=== PATIENT | male | born 1970 | race African-American/Black ===

== ENCOUNTER 2017-02-05 18:36 | Emergency (ER) | payer OTHER ==
[2017-02-05 19:18] VITALS: BP 104/81; PULSE 78; TEMP 98; BMI 33.2
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
== END 2017-02-05 20:32 | disposition home or self-care (01) ==
LOC: FER 18:36
DX: S16.1XXA Strain of muscle, fascia and tendon at neck level, initial encounter (principal); S13.4XXA Sprain of ligaments of cervical spine, initial encounter; V44.5XXA Car driver injured in collision with heavy transport vehicle or bus in traffic accident, initial encounter; Y93.89 Activity, other specified; Y92.410 Unspecified street and highway as the place of occurrence of the external cause; I10 Essential (primary) hypertension; I51.9 Heart disease, unspecified; I50.9 Heart failure, unspecified
CPT/HCPCS: 72050-TC; 99281-25

== ENCOUNTER 2021-01-25 20:20 | Emergency (ER) | payer OTHER ==
[2021-01-25 20:50] VITALS: BMI 25.9
[2021-01-25 22:50] LABS: INR 0.97 (0.83-1.09); PROTHROMBIN TIME (PATIENT) 11.7 SEC (9.7-13.0)
[2021-01-25 22:52] LABS: ACTIVATED PTT 24.4 SECONDS (25.2-36.5); CHLORIDE 100 mmol/L (98-107); SODIUM 136 mmol/L (136-145)
[2021-01-25 22:54] LABS: ANION GAP 11 MMOL/L (8-16); BLOOD UREA NITROGEN 52.8 mg/dL (7-18); CALCIUM 8.9 mg/dL (8.5-10.1); CO2 25 mmol/L (21-32); GLUCOSE,RANDOM 102 mg/dL (74-106)
[2021-01-25 22:55] LABS: ALBUMIN 4.6 g/dl (3.4-5.0)
[2021-01-25 22:58] LABS: SGOT/AST 17 U/L (15-37); SGPT/ALT 26 U/L (13-61)
[2021-01-25 22:59] LABS: BILIRUBIN,TOTAL 0.9 mg/dL (0.2-1)
[2021-01-25 23:00] LABS: ALK PHOS 99 U/L (45-117)
[2021-01-25 23:13] LABS: CREATININE 7.9 mg/dL (0.55-1.3)
[2021-01-25 23:19] LABS: EPI CELLS 2 /uL (0-25.1); HYALINE CASTS 0 /uL (0-3.1); PH,URINE 8.5 (5.0-8.0); URINE APPEARANCE CLEAR; URINE BACTERIA 26 /uL (0-1359); URINE BILIRUBIN NEGATIVE (NEGATIVE); URINE COLOR YELLOW; URINE GLUCOSE (UA) NEGATIVE (NEGATIVE); URINE KETONE NEGATIVE (NEGATIVE); URINE LEUK ESTERASE NEGATIVE (NEGATIVE); URINE NITRITE NEGATIVE (NEGATIVE); URINE PROTEIN 3+ (NEGATIVE); URINE RBC 3 /uL (0-23.9); URINE UROBILINOGEN 0.2 mg/dL (0.2-1.0); URINE WBC 3 /uL (0-25.8)
[2021-01-25] MEDS ORDERED: ACETAMINOPHEN 325 MG TABLET (FP) ONE (23:37)
[2021-01-25 23:49] LABS: BASO % 1.4 % (0-2.0); EOS % 2.5 % (0-4.5); HEMATOCRIT 37.4 % (35.4-49); HEMOGLOBIN 12.5 GM/dL (11.7-16.9); LYMPH % 29.7 % (8-40); MCH 31.1 pg (25.7-33.7); MCHC 33.4 g/dl (32.0-35.9); MEAN CELL VOLUME 93.3 fl (80-96); MEAN PLT VOLUME 9.5 fl (7.5-11.1); MONO % 19.4 % (3.8-10.2); PLATELET COUNT 102 10^3/uL (134-434); RBC 4.01 M/mm3 (4.00-5.60); RDW 12.6 % (11.9-15.9); WHITE BLOOD COUNT 2.5 K/mm3 (4.0-10.0)
[2021-01-26 02:48] VITALS: TEMP 98.7
[2021-01-26 03:45] VITALS: BP 147/86; PULSE 87
== END 2021-01-26 03:45 | disposition short-term general hospital (02) ==
LOC: JER 20:20
DX: R55 Syncope and collapse (principal); N18.6 End stage renal disease; Z94.1 Heart transplant status
CPT/HCPCS: 36415; 70450-TC; 71046-TC-FY; 80053; 81003; 82962; 83605; 84443; 84484; 85025; 85610; 85730; 93005; 93010; 99285-25; C9803; U0003; U0005

== ENCOUNTER 2021-06-29 15:15 | Emergency (ER) | payer OTHER ==
[2021-06-29 15:21] VITALS: TEMP 98.5; BMI 27.6
[2021-06-29 20:44] LABS: BASO % 1.3 % (0-2.0); EOS % 4.1 % (0-4.5); HEMATOCRIT 21.4 % (35.4-49); LYMPH % 23.5 % (8-40); MCH 30.6 pg (25.7-33.7); MCHC 32.4 g/dl (32.0-35.9); MEAN CELL VOLUME 94.3 fl (80-96); MONO % 27.4 % (3.8-10.2); NEUT % 43.7 % (42.8-82.8); PLATELET COUNT 203 10^3/uL (134-434); RBC 2.27 M/mm3 (4.00-5.60); RDW 14.1 % (11.9-15.9); WHITE BLOOD COUNT 2.1 K/mm3 (4.0-10.0)
[2021-06-29 21:11] LABS: CHLORIDE 106 mmol/L (98-107); SODIUM 139 mmol/L (136-145)
[2021-06-29 21:14] LABS: ANION GAP 8 MMOL/L (8-16); CALCIUM 9.3 mg/dL (8.5-10.1); CO2 25 mmol/L (21-32); GLUCOSE,RANDOM 94 mg/dL (74-106)
[2021-06-29 21:17] LABS: SGOT/AST 16 U/L (15-37); SGPT/ALT 32 U/L (13-61)
[2021-06-29 21:19] LABS: ALK PHOS 72 U/L (45-117); BILIRUBIN,TOTAL 0.6 mg/dL (0.2-1)
[2021-06-29 21:27] LABS: ANISOCYTOSIS 2+; MACROCYTOSIS 0; OVALOCYTE 1+; PLATELET ESTIMATE NORMAL; TEAR DROP CELLS 1+
[2021-06-29] MEDS ORDERED: DEXTROSE 50%-WATER - 25 GM/50 ML VIAL IVPUSH ONE (21:27)
[2021-06-29] MEDS ORDERED: INSULIN REGULAR HUMAN 100 UNITS/ML *VIAL IVPUSH ONE (21:27)
[2021-06-29] MEDS ORDERED: SODIUM ZIRCONIUM CYCLOSILICATE (LOKELMA) 5 GM PACKET PO ONE (21:31)
[2021-06-29 21:32] LABS: CREATININE 10.5 mg/dL (0.55-1.3)
[2021-06-29 21:35] LABS: INR 1.09 (0.83-1.09); PROTHROMBIN TIME (PATIENT) 12.2 SEC (9.7-13.0)
[2021-06-29 21:37] LABS: ACTIVATED PTT 32.8 SECONDS (25.2-36.5)
[2021-06-29 21:46] LABS: EPI CELLS 1 /uL (0-25.1); HYALINE CASTS 0 /uL (0-3.1); PH,URINE 8.5 (5.0-8.0); URINE APPEARANCE CLEAR; URINE BACTERIA 3 /uL (0-1359); URINE BILIRUBIN NEGATIVE (NEGATIVE); URINE COLOR YELLOW; URINE GLUCOSE (UA) NEGATIVE (NEGATIVE); URINE KETONE NEGATIVE (NEGATIVE); URINE LEUK ESTERASE NEGATIVE (NEGATIVE); URINE NITRITE NEGATIVE (NEGATIVE); URINE PROTEIN 3+ (NEGATIVE); URINE RBC 10 /uL (0-23.9); URINE UROBILINOGEN 0.2 mg/dL (0.2-1.0); URINE WBC 1 /uL (0-25.8)
[2021-06-29] MEDS ORDERED: SODIUM ZIRCONIUM CYCLOSILICATE (LOKELMA) 5 GM PACKET ONE (21:55)
[2021-06-29] MEDS ORDERED: DEXTROSE 50%-WATER 25 GM/50 ML DISP.SYRIN ONE (21:55)
[2021-06-30] MEDS ORDERED: SODIUM ZIRCONIUM CYCLOSILICATE (LOKELMA) 5 GM PACKET PO ONE (01:35)
[2021-06-30] MEDS ORDERED: SODIUM ZIRCONIUM CYCLOSILICATE (LOKELMA) 5 GM PACKET ONE (01:44)
[2021-06-30 02:08] VITALS: BP 152/82; PULSE 81
[2021-06-30] MEDS ORDERED: DEXAMETHASONE SOD PHOSPHATE 10 MG/1 ML VIAL ONE (02:23)
== END 2021-06-30 02:08 | disposition home or self-care (01) ==
LOC: JER 15:15
PROC: 3E033GC Introduction of Other Therapeutic Substance into Peripheral Vein, Percutaneous Approach (ICD-10-PCS; principal; 2021-06-29)
PROC: 3E013VG Introduction of Insulin into Subcutaneous Tissue, Percutaneous Approach (ICD-10-PCS; 2021-06-29)
DX: R10.11 Right upper quadrant pain (principal); D64.9 Anemia, unspecified
CPT/HCPCS: 36415; 74176-TC; 80053; 81003; 84132; 85025; 85610; 85730; 86850; 86900; 86901; 87086; 93005; 93010; 99285-25; C9803-CS; U0003; U0005

== ENCOUNTER 2021-11-07 18:49 | Emergency (ER) | payer OTHER ==
[2021-11-07 19:17] VITALS: BMI 25.0
[2021-11-07] MEDS ORDERED: ACETAMINOPHEN 1000 MG/100 ML BAG IVPB ONE ×2 (19:38→23:56)
[2021-11-07] MEDS ORDERED: METOCLOPRAMIDE HCL INJECTION 10 MG/2 ML VIAL IVPB ONE (19:38)
[2021-11-07] MEDS ORDERED: METOCLOPRAMIDE HCL INJECTION 10 MG/2 ML VIAL ONE (20:32)
[2021-11-07] MEDS ORDERED: ACETAMINOPHEN INJECTION 100 ML IVPB ONE (20:32)
[2021-11-07 20:39] LABS: BASO % 1.1 % (0-2.0); HEMATOCRIT 37.9 % (35.4-49); HEMOGLOBIN 12.3 GM/dL (11.7-16.9); LYMPH % 14.2 % (8-40); MCH 30.5 pg (25.7-33.7); MCHC 32.6 g/dl (32.0-35.9); MEAN CELL VOLUME 93.7 fl (80-96); MEAN PLT VOLUME 9.5 fl (7.5-11.1); MONO % 18.4 % (3.8-10.2); NEUT % 65.3 % (42.8-82.8); PLATELET COUNT 127 10^3/uL (134-434); RBC 4.05 M/mm3 (4.00-5.60); WHITE BLOOD COUNT 2.9 K/mm3 (4.0-10.0)
[2021-11-07 21:05] LABS: CHLORIDE 100 mmol/L (98-107); SODIUM 134 mmol/L (136-145)
[2021-11-07 21:08] LABS: CALCIUM 8.6 mg/dL (8.5-10.1)
[2021-11-07 21:09] LABS: ALBUMIN 4.2 g/dl (3.4-5.0); ANION GAP 10 MMOL/L (8-16); BLOOD UREA NITROGEN 60.5 mg/dL (7-18); CO2 23 mmol/L (21-32); GLUCOSE,RANDOM 142 mg/dL (74-106); MAGNESIUM 2.4 mg/dL (1.8-2.4)
[2021-11-07 21:12] LABS: SGOT/AST 18 U/L (15-37); SGPT/ALT 26 U/L (13-61)
[2021-11-07 21:13] LABS: TOT PROT 6.6 g/dl (6.4-8.2)
[2021-11-07 21:14] LABS: ALK PHOS 54 U/L (45-117)
[2021-11-07 21:42] LABS: CREATININE 8.7 mg/dL (0.55-1.3); N-TERMINAL BNP 63930.4 pg/ml (5-125)
[2021-11-07 23:43] LABS: CHLORIDE 100 mmol/L (98-107); SODIUM 134 mmol/L (136-145)
[2021-11-07 23:45] LABS: ANION GAP 10 MMOL/L (8-16); CALCIUM 8.6 mg/dL (8.5-10.1); CO2 23 mmol/L (21-32)
[2021-11-07 23:46] LABS: BLOOD UREA NITROGEN 62.7 mg/dL (7-18); GLUCOSE,RANDOM 111 mg/dL (74-106)
[2021-11-07 23:49] LABS: CREATININE 8.8 mg/dL (0.55-1.3)
[2021-11-08 05:59] VITALS: BP 194/94; PULSE 80; TEMP 98.1
== END 2021-11-08 00:27 | disposition short-term general hospital (02) ==
LOC: JER 18:49
PROC: 3E0333Z Introduction of Anti-inflammatory into Peripheral Vein, Percutaneous Approach (ICD-10-PCS; principal; 2021-11-07)
PROC: 3E0333Z Introduction of Anti-inflammatory into Peripheral Vein, Percutaneous Approach (ICD-10-PCS; 2021-11-07)
PROC: 3E033GC Introduction of Other Therapeutic Substance into Peripheral Vein, Percutaneous Approach (ICD-10-PCS; 2021-11-07)
DX: E87.70 Fluid overload, unspecified (principal); N18.6 End stage renal disease; Z99.2 Dependence on renal dialysis
CPT/HCPCS: 36415; 70450-TC; 71045-TC-FY; 80048; 80053; 83735; 83880; 84484; 85025; 93005; 93010; 99285-25; C9803-CS; U0003; U0005

== ENCOUNTER 2022-01-09 08:45 | Inpatient (IN) | payer OTHER ==
[2022-01-09 08:56] VITALS: BMI 26.4
[2022-01-09 10:41] LABS: HEMATOCRIT 24.1 % (35.4-49); HEMOGLOBIN 7.9 GM/dL (11.7-16.9); MCHC 32.6 g/dl (32.0-35.9); MEAN CELL VOLUME 88.8 fl (80-96); MEAN PLT VOLUME 8.7 fl (7.5-11.1); PLATELET COUNT 95 10^3/uL (134-434); RBC 2.71 M/mm3 (4.00-5.60); RDW 17.7 % (11.9-15.9); WHITE BLOOD COUNT 2.8 K/mm3 (4.0-10.0)
[2022-01-09 10:49] LABS: INR 1.05 (0.83-1.09); PROTHROMBIN TIME (PATIENT) 12.1 SEC (9.7-13.0)
[2022-01-09 10:51] LABS: ACTIVATED PTT 33.4 SECONDS (25.2-36.5)
[2022-01-09 11:00] LABS: CHLORIDE 106 mmol/L (98-107); SODIUM 139 mmol/L (136-145)
[2022-01-09 11:02] LABS: ALBUMIN 3.8 g/dl (3.4-5.0); CALCIUM 9.3 mg/dL (8.5-10.1); CO2 18 mmol/L (21-32); GLUCOSE,RANDOM 89 mg/dL (74-106); MAGNESIUM 2.1 mg/dL (1.8-2.4)
[2022-01-09 11:05] LABS: SGOT/AST 9 U/L (15-37); SGPT/ALT 42 U/L (13-61)
[2022-01-09 11:07] LABS: BILIRUBIN,TOTAL 0.6 mg/dL (0.2-1); TOT PROT 5.8 g/dl (6.4-8.2)
[2022-01-09 11:08] LABS: ALK PHOS 60 U/L (45-117)
[2022-01-09 11:09] LABS: ANISOCYTOSIS 1+; MACROCYTOSIS 0
[2022-01-09 11:13] LABS: ANION GAP 15 MMOL/L (8-16); BLOOD UREA NITROGEN 127.3 mg/dL (7-18); CREATININE 12.9 mg/dL (0.55-1.3)
[2022-01-09 11:33] LABS: N-TERMINAL BNP 117286.2 pg/ml (5-125)
[2022-01-09] MEDS ORDERED: SODIUM BICARBONATE 8.4% 50 MEQ/50 ML VIAL IVPUSH ONE (15:09)
[2022-01-09] MEDS ORDERED: CALCIUM GLUCONATE 10% - 1,000 MG/10 ML VIAL IVPB ONE (15:09)
[2022-01-09] MEDS ORDERED: DEXTROSE 50%-WATER - 25 GM/50 ML VIAL IVPUSH ONE (15:09)
[2022-01-09] MEDS ORDERED: INSULIN REGULAR HUMAN 100 UNITS/ML *VIAL IVPUSH ONE (15:09)
[2022-01-09] MEDS ORDERED: SODIUM BICARBONATE 8.4% 50 MEQ/50 ML VIAL ONE (15:18)
[2022-01-09] MEDS ORDERED: CALCIUM GLUCONATE 10% - 1,000 MG/10 ML VIAL ONE (15:19)
[2022-01-09] MEDS ORDERED: DEXTROSE 50%-WATER 25 GM/50 ML DISP.SYRIN ONE (15:19)
[2022-01-09] MEDS ORDERED: SODIUM BICARBONATE 8.4% - 50 ML ONE (15:28)
[2022-01-09 15:31] LABS: RETICULOCYTES 1.27 % (0.5-1.5)
[2022-01-09 15:40] LABS: IRON SERUM 44 ug/dL (50-175); TOTAL IRON BINDING CAPACITY 224 ug/dL (250-450)
[2022-01-09] MEDS ORDERED: SEVELAMER CARBONATE 800 MG TAB (FP) PO SCH (17:30)
[2022-01-09] MEDS ORDERED: ACETAMINOPHEN 325 MG TABLET (FP) PO ONE (18:25)
[2022-01-09] MEDS ORDERED: ACETAMINOPHEN 325 MG TABLET (FP) ONE (18:27)
[2022-01-09 20:32] VITALS: BP 162/89; PULSE 72; TEMP 97.6
[2022-01-09] MEDS ORDERED: TORSEMIDE 100 MG TABLET PO SCH (22:00)
[2022-01-09] MEDS ORDERED: ATORVASTATIN CA 20 MG TABLET (FP) PO SCH (22:00)
[2022-01-09] MEDS ORDERED: MYCOPHENOLATE MOFETIL 250 MG CAPSULE PO SCH (22:00)
[2022-01-09] MEDS ORDERED: TACROLIMUS ANHYDROUS 1 MG CAPSULE PO SCH (22:00)
[2022-01-10] MEDS ORDERED: TACROLIMUS ANHYDROUS 1 MG CAPSULE PO SCH (07:00)
[2022-01-10] MEDS ORDERED: VITAMIN B COMP W-C 1 EA TABLET (NEPHRO-VITE) PO SCH (10:00)
[2022-01-10] MEDS ORDERED: predniSONE 5 MG TABLET (UD) PO SCH (10:00)
== END 2022-01-09 20:15 | disposition short-term general hospital (02) | DRG 808 ==
LOC: JER 08:45 → JERBED 10:52
PROVIDERS: ADMIT Internal Medicine; ATTEND Internal Medicine
DX: D61.818 Other pancytopenia (principal); N18.6 End stage renal disease; I50.23 Acute on chronic systolic (congestive) heart failure; E27.1 Primary adrenocortical insufficiency; Z94.1 Heart transplant status; I13.2 Hypertensive heart and chronic kidney disease with heart failure and with stage 5 chronic kidney disease, or end stage renal disease; I42.0 Dilated cardiomyopathy; G30.9 Alzheimer's disease, unspecified; F02.80 Dementia in other diseases classified elsewhere, unspecified severity, without behavioral disturbance, psychotic disturbance, mood disturbance, and anxiety; M79.7 Fibromyalgia; Z99.2 Dependence on renal dialysis; I25.119 Atherosclerotic heart disease of native coronary artery with unspecified angina pectoris; G47.30 Sleep apnea, unspecified; K59.00 Constipation, unspecified; Z87.11 Personal history of peptic ulcer disease
CPT/HCPCS: 0241U-QW; 36415; 71045-TC-FY; 80053; 82728; 83540; 83550; 83735; 83880; 84100; 84132; 84484; 85025; 85045; 85610; 85730; 87040; 93005; 93010; 99285-25

== ENCOUNTER 2022-02-01 13:26 | Inpatient (IN) | payer OTHER ==
[2022-02-01 13:34] VITALS: BMI 27.3
[2022-02-01] MEDS ORDERED: amLODIPine BESYLATE 10 MG TABLET (FP) PO ONE (14:37)
[2022-02-01] MEDS ORDERED: amLODIPine BESYLATE 10 MG TABLET (FP) ONE (15:15)
[2022-02-01 15:26] LABS: BASO % 0.8 % (0-2.0); EOS % 0.9 % (0-4.5); HEMOGLOBIN 8.3 GM/dL (11.7-16.9); LYMPH % 16.5 % (8-40); MCHC 33.3 g/dl (32.0-35.9); MEAN CELL VOLUME 90.1 fl (80-96); MEAN PLT VOLUME 9.7 fl (7.5-11.1); MONO % 8.3 % (3.8-10.2); NEUT % 73.5 % (42.8-82.8); PLATELET COUNT 233 10^3/uL (134-434); RBC 2.77 M/mm3 (4.00-5.60); RDW 21.6 % (11.9-15.9); WHITE BLOOD COUNT 3.8 K/mm3 (4.0-10.0)
[2022-02-01] MEDS ORDERED: FUROSEMIDE 40 MG/4 ML INJECTABLE VIAL IVPUSH ONE (15:37)
[2022-02-01 15:40] LABS: VENOUS BASE EXCESS -7.9 mmol/L (-2-2); VENOUS PCO2 29.9 mmHg (38-52); VENOUS PH 7.361 (7.310-7.410)
[2022-02-01] MEDS ORDERED: FUROSEMIDE 40 MG/4 ML INJECTABLE VIAL ONE (15:46)
[2022-02-01 15:54] LABS: CHLORIDE 108 mmol/L (98-107); SODIUM 140 mmol/L (136-145)
[2022-02-01 15:56] LABS: CALCIUM 8.9 mg/dL (8.5-10.1)
[2022-02-01 15:57] LABS: CO2 17 mmol/L (21-32); GLUCOSE,RANDOM 100 mg/dL (74-106)
[2022-02-01 16:00] LABS: SGOT/AST 21 U/L (15-37); SGPT/ALT 36 U/L (13-61)
[2022-02-01 16:02] LABS: BILIRUBIN,TOTAL 0.6 mg/dL (0.2-1); TOT PROT 6.2 g/dl (6.4-8.2)
[2022-02-01 16:03] LABS: ALK PHOS 68 U/L (45-117)
[2022-02-01 16:39] LABS: ANION GAP 15 MMOL/L (8-16); BLOOD UREA NITROGEN 106.8 mg/dL (7-18); CREATININE 14.5 mg/dL (0.55-1.3)
[2022-02-01 17:02] LABS: ANISOCYTOSIS 2+; MACROCYTOSIS 0
[2022-02-01 18:40] LABS: CHLORIDE 108 mmol/L (98-107); SODIUM 141 mmol/L (136-145)
[2022-02-01 18:42] LABS: CO2 17 mmol/L (21-32)
[2022-02-01 18:43] LABS: GLUCOSE,RANDOM 100 mg/dL (74-106)
[2022-02-01 18:47] LABS: ANION GAP 15 MMOL/L (8-16); BLOOD UREA NITROGEN 109.4 mg/dL (7-18); CREATININE 14.8 mg/dL (0.55-1.3)
[2022-02-01] MEDS ORDERED: CALCIUM GLUCONATE 10% - 1,000 MG/10 ML VIAL IVPB ONE (19:11)
[2022-02-01] MEDS ORDERED: INSULIN REGULAR HUMAN 100 UNITS/ML *VIAL IVPUSH ONE (19:12)
[2022-02-01] MEDS ORDERED: DEXTROSE 50%-WATER - 25 GM/50 ML VIAL IVPUSH ONE (19:13)
[2022-02-01] MEDS ORDERED: HEPARIN NA (PORCINE) 5,000 UNITS/ML 1ML VIAL SQ ONE (20:01)
[2022-02-01] MEDS ORDERED: DEXTROSE 50%-WATER 25 GM/50 ML DISP.SYRIN ONE (20:13)
[2022-02-01] MEDS ORDERED: CALCIUM GLUC IN NACL, ISO-OSM 1 GM/50 ML BAG IVPB ONE (20:14)
[2022-02-01] MEDS ORDERED: HEPARIN NA (PORCINE) 5,000 UNITS/ML 1ML VIAL ONE (20:14)
[2022-02-01] MEDS ORDERED: EPOETIN ALFA 10,000 UNIT/1 ML VIAL IVPUSH ONE (21:17)
[2022-02-02 03:22] LABS: CHLORIDE 104 mmol/L (98-107); SODIUM 142 mmol/L (136-145)
[2022-02-02 03:23] LABS: CALCIUM 8.2 mg/dL (8.5-10.1)
[2022-02-02 03:24] LABS: ANION GAP 11 MMOL/L (8-16); CO2 26 mmol/L (21-32); GLUCOSE,RANDOM 105 mg/dL (74-106)
[2022-02-02 03:29] LABS: BLOOD UREA NITROGEN 57.6 mg/dL (7-18); CREATININE 8.5 mg/dL (0.55-1.3)
[2022-02-02] MEDS ORDERED: ALPRAZolam 0.25 MG TABLET PO ONE (05:28)
[2022-02-02 05:45] VITALS: BP 170/97; PULSE 84; RESP 18; TEMP 98.4
[2022-02-02] MEDS ORDERED: SODIUM ZIRCONIUM CYCLOSILICATE (LOKELMA) 5 GM PACKET PO ONE (19:10)
== END 2022-02-02 05:49 | disposition short-term general hospital (02) | DRG 640 ==
LOC: JER 13:26 → JERBED 18:20 → J4W 22:00 → JERBED 22:01 → J4W 22:02
PROVIDERS: ADMIT Internal Medicine; ATTEND Internal Medicine
PROC: 5A1D70Z Performance of Urinary Filtration, Intermittent, Less than 6 Hours Per Day (ICD-10-PCS; principal; 2022-02-01)
DX: E87.70 Fluid overload, unspecified (principal); N18.6 End stage renal disease; I12.0 Hypertensive chronic kidney disease with stage 5 chronic kidney disease or end stage renal disease; Z94.1 Heart transplant status; E27.1 Primary adrenocortical insufficiency; E87.2 Acidosis; I25.10 Atherosclerotic heart disease of native coronary artery without angina pectoris; Z99.2 Dependence on renal dialysis; E87.5 Hyperkalemia; Z86.16 Personal history of COVID-19; Z28.310 Unvaccinated for COVID-19; M79.7 Fibromyalgia
CPT/HCPCS: 36415; 71045-TC-FY; 80048; 80053; 82803; 83880; 84484; 85025; 86803; 87340; 93005; 93010; 99285-25; C9803-CS; J0885; J1644; U0003; U0005

== ENCOUNTER 2022-02-20 19:07 | Emergency (ER) | payer OTHER ==
[2022-02-20 19:20] VITALS: RESP 20; TEMP 98; BMI 26.9
[2022-02-20] MEDS ORDERED: FUROSEMIDE 40 MG/4 ML INJECTABLE VIAL IVPUSH ONE (20:17)
[2022-02-20] MEDS ORDERED: DEXAMETHASONE SOD PHOSPHATE 10 MG/1 ML VIAL IVPUSH ONE (20:19)
[2022-02-20] MEDS ORDERED: FUROSEMIDE 40 MG/4 ML INJECTABLE VIAL ONE (20:21)
[2022-02-20] MEDS ORDERED: DEXAMETHASONE SOD PHOSPHATE 10 MG/1 ML VIAL ONE (20:37)
[2022-02-20 21:18] LABS: BASO % 1.1 % (0-2.0); HEMATOCRIT 30.7 % (35.4-49); HEMOGLOBIN 10.1 GM/dL (11.7-16.9); INR 1.1 (0.83-1.09); LYMPH % 29.6 % (8-40); MCH 32.2 pg (25.7-33.7); MCHC 32.9 g/dl (32.0-35.9); MEAN CELL VOLUME 97.8 fl (80-96); MEAN PLT VOLUME 9.9 fl (7.5-11.1); MONO % 18.2 % (3.8-10.2); NEUT % 48.1 % (42.8-82.8); PLATELET COUNT 95 10^3/uL (134-434); PROTHROMBIN TIME (PATIENT) 12.7 SEC (9.7-13.0); RBC 3.14 M/mm3 (4.00-5.60); RDW 21.1 % (11.9-15.9); WHITE BLOOD COUNT 2.4 K/mm3 (4.0-10.0)
[2022-02-20 21:21] LABS: ACTIVATED PTT 33.8 SECONDS (25.2-36.5)
[2022-02-20 21:24] LABS: CHLORIDE 106 mmol/L (98-107); SODIUM 141 mmol/L (136-145)
[2022-02-20 21:26] LABS: ALBUMIN 3.7 g/dl (3.4-5.0); CALCIUM 9.5 mg/dL (8.5-10.1)
[2022-02-20 21:27] LABS: ANION GAP 14 MMOL/L (8-16); CO2 21 mmol/L (21-32); GLUCOSE,RANDOM 113 mg/dL (74-106); MAGNESIUM 2.4 mg/dL (1.8-2.4)
[2022-02-20 21:30] LABS: SGOT/AST 8 U/L (15-37); SGPT/ALT 51 U/L (13-61)
[2022-02-20 21:31] LABS: BILIRUBIN,TOTAL 0.5 mg/dL (0.2-1); TOT PROT 5.9 g/dl (6.4-8.2)
[2022-02-20 21:32] LABS: ALK PHOS 87 U/L (45-117)
[2022-02-20 21:37] LABS: BLOOD UREA NITROGEN 105.6 mg/dL (7-18)
[2022-02-20 21:43] LABS: ANISOCYTOSIS 3+; MACROCYTOSIS 0; OVALOCYTE 1+; PHOSPHOROUS 9.1 mg/dL (2.5-4.9); TARGET CELLS 1+; TEAR DROP CELLS 1+
[2022-02-20] MEDS ORDERED: CALCIUM GLUCONATE 10% - 1,000 MG/10 ML VIAL IVPB ONE (21:54)
[2022-02-20] MEDS ORDERED: SODIUM ZIRCONIUM CYCLOSILICATE (LOKELMA) 5 GM PACKET ONE (22:09)
[2022-02-20] MEDS ORDERED: CALCIUM GLUCONATE 10% - 1,000 MG/10 ML VIAL ONE (22:09)
[2022-02-20 22:26] LABS: N-TERMINAL BNP > 175000.0 pg/ml (5-125)
[2022-02-20] MEDS ORDERED: SODIUM ZIRCONIUM CYCLOSILICATE (LOKELMA) 5 GM PACKET PO ONE (22:26)
[2022-02-20 23:51] VITALS: BP 184/104; PULSE 85
[2022-02-21] MEDS ORDERED: SODIUM ZIRCONIUM CYCLOSILICATE (LOKELMA) 5 GM PACKET PO ONE (21:54)
== END 2022-02-21 03:46 | disposition left against medical advice (07) ==
LOC: JER 19:07
PROC: 3E033NZ Introduction of Analgesics, Hypnotics, Sedatives into Peripheral Vein, Percutaneous Approach (ICD-10-PCS; principal; 2022-02-20)
PROC: 3E033GC Introduction of Other Therapeutic Substance into Peripheral Vein, Percutaneous Approach (ICD-10-PCS; 2022-02-20)
PROC: 3E033GC Introduction of Other Therapeutic Substance into Peripheral Vein, Percutaneous Approach (ICD-10-PCS; 2022-02-20)
DX: U07.1 COVID-19 (principal); E87.5 Hyperkalemia; E83.39 Other disorders of phosphorus metabolism; I50.9 Heart failure, unspecified
CPT/HCPCS: 0241U-QW; 36415; 71045-TC-FY; 80053; 83735; 83880; 84100; 85025; 85610; 85730; 93005; 93010; 99285-25; J1100

== ENCOUNTER 2023-01-02 15:14 | Inpatient (IN) | payer OTHER ==
[2023-01-02 18:08] LABS: VENOUS BASE EXCESS -9.7 mmol/L (-2-2); VENOUS O2 SATURATION 98.3 % (70-80); VENOUS PCO2 27.6 mmHg (38-52); VENOUS PH 7.343 (7.310-7.410)
[2023-01-02 18:11] LABS: BASO % 0.4 % (0-2.0); EOS % 3.7 % (0-4.5); HEMATOCRIT 31.2 % (35.4-49); HEMOGLOBIN 10.3 GM/dL (11.7-16.9); LYMPH % 37.4 % (8-40); MCH 30.1 pg (25.7-33.7); MCHC 32.9 g/dl (32.0-35.9); MEAN CELL VOLUME 91.4 fl (80-96); MEAN PLT VOLUME 9.7 fl (7.5-11.1); MONO % 13.8 % (3.8-10.2); NEUT % 44.7 % (42.8-82.8); PLATELET COUNT 103 10^3/uL (134-434); RBC 3.41 M/mm3 (4.00-5.60); RDW 14.4 % (11.9-15.9); WHITE BLOOD COUNT 5.6 K/mm3 (4.0-10.0)
[2023-01-02 18:24] LABS: CHLORIDE 105 mmol/L (98-107); SODIUM 139 mmol/L (136-145)
[2023-01-02 18:26] LABS: CALCIUM 7.9 mg/dL (8.5-10.1)
[2023-01-02 18:27] LABS: ALBUMIN 3.6 g/dl (3.4-5.0); CO2 17 mmol/L (21-32); GLUCOSE,RANDOM 114 mg/dL (74-106); MAGNESIUM 2.3 mg/dL (1.8-2.4)
[2023-01-02 18:30] LABS: SGPT/ALT 26 U/L (13-61)
[2023-01-02 18:32] LABS: BILIRUBIN,TOTAL 0.5 mg/dL (0.2-1); TOT PROT 6.1 g/dl (6.4-8.2)
[2023-01-02 18:33] LABS: ALK PHOS 97 U/L (45-117)
[2023-01-02 18:36] LABS: ANION GAP 17 MMOL/L (8-16); BLOOD UREA NITROGEN 188.2 mg/dL (7-18); CREATININE 19.2 mg/dL (0.55-1.3); N-TERMINAL BNP > 35000.0 pg/ml (5-125); POTASSIUM 7.5 mmol/L (3.5-5.1); SGOT/AST < 3 U/L (15-37)
[2023-01-02] MEDS ORDERED: INSULIN REGULAR HUMAN 100 UNITS/ML *VIAL IVPUSH ONE ×2 (18:39→18:42)
[2023-01-02] MEDS ORDERED: CALCIUM GLUCONATE 10% - 1,000 MG/10 ML VIAL IVPB ONE (18:39)
[2023-01-02] MEDS ORDERED: ALBUTEROL SULFATE 0.021% (0.63 MG/3 ML) VIAL.NEB NEB ONE (18:40)
[2023-01-02] MEDS ORDERED: DEXTROSE 50%-WATER - 25 GM/50 ML VIAL IVPUSH ONE (18:42)
[2023-01-02] MEDS ORDERED: CALCIUM GLUCONATE 10% - 1,000 MG/10 ML VIAL IVPUSH ONE (18:42)
[2023-01-02] MEDS ORDERED: ALBUTEROL SO4 2.5/IPRATROPIUM 0.5 INH SOL 3 ML VIAL.NEB. NEB ONE ×2 (18:42→18:52)
[2023-01-02] MEDS ORDERED: SODIUM ZIRCONIUM CYCLOSILICATE (LOKELMA) 5 GM PACKET ONE (18:52)
[2023-01-02] MEDS ORDERED: CALCIUM CHLORIDE 1 GM/10 ML *DISP.SYRIN ONE (18:53)
[2023-01-02] MEDS ORDERED: DEXTROSE 50%-WATER 25 GM/50 ML DISP.SYRIN ONE (18:53)
[2023-01-02] MEDS ORDERED: SODIUM CHLORIDE 250 ML IV PRN (19:08)
[2023-01-02 19:14] LABS: PHOSPHOROUS 9.9 mg/dL (2.5-4.9)
[2023-01-02] MEDS: SODIUM ZIRCONIUM CYCLOSILICATE (LOKELMA) 5 GM PACKET PO SCH (19:15)
[2023-01-02] MEDS ORDERED: ALPRAZolam 0.25 MG TABLET PO PRN (20:31)
[2023-01-02] MEDS: TACROLIMUS ANHYDROUS 1 MG CAPSULE PO SCH (21:17)
[2023-01-02] MEDS: MYCOPHENOLATE MOFETIL 250 MG CAPSULE PO SCH (21:18)
[2023-01-02] MEDS: MUPIROCIN 2% TOPICAL OINTMENT FOR DECOLONIZATION NS SCH (21:18)
[2023-01-02] MEDS: ATORVASTATIN CA 20 MG TABLET (FP) PO SCH (21:22)
[2023-01-02] MEDS: HEPARIN NA (PORCINE) 5,000 UNITS/ML 1ML VIAL SQ SCH ×2 (21:22→21:32)
[2023-01-02] MEDS: CHLORHEXIDINE GLUCONATE 4% CLEANSER FOR DECOLONIZATION TP SCH (21:34)
[2023-01-03] MEDS: hydrALAZINE HCL 25 MG TABLET (FP) PO SCH ×4 (01:48→21:37)
[2023-01-03] MEDS: amLODIPine BESYLATE 10 MG TABLET (FP) PO SCH ×2 (01:48→21:40)
[2023-01-03] MEDS: DOXAZOSIN MESYLATE 4 MG TABLET PO SCH (01:50)
[2023-01-03] MEDS: HEPARIN NA (PORCINE) 5,000 UNITS/ML 1ML VIAL SQ SCH ×3 (05:11→21:39)
[2023-01-03] MEDS: TACROLIMUS ANHYDROUS 1 MG CAPSULE PO SCH ×2 (06:39→21:41)
[2023-01-03] MEDS ORDERED: SODIUM CHLORIDE 250 ML IV PRN (09:04)
[2023-01-03] MEDS: SODIUM ZIRCONIUM CYCLOSILICATE (LOKELMA) 5 GM PACKET PO SCH (09:26)
[2023-01-03] MEDS: ASPIRIN 81 MG CHEWABLE TABLETS PO SCH (09:26)
[2023-01-03] MEDS: MUPIROCIN 2% TOPICAL OINTMENT FOR DECOLONIZATION NS SCH ×2 (09:27→21:37)
[2023-01-03] MEDS: MYCOPHENOLATE MOFETIL 250 MG CAPSULE PO SCH ×2 (09:27→21:38)
[2023-01-03] MEDS: SEVELAMER CARBONATE 800 MG TAB (FP) PO SCH ×3 (09:28→18:31)
[2023-01-03 09:30] LABS: BASO % 0.8 % (0-2.0); EOS % 5.5 % (0-4.5); HEMOGLOBIN 10.6 GM/dL (11.7-16.9); LYMPH % 40.3 % (8-40); MCH 30.3 pg (25.7-33.7); MCHC 33.1 g/dl (32.0-35.9); MEAN CELL VOLUME 91.7 fl (80-96); MEAN PLT VOLUME 9.2 fl (7.5-11.1); MONO % 14.2 % (3.8-10.2); NEUT % 39.2 % (42.8-82.8); PLATELET COUNT 99 10^3/uL (134-434); RBC 3.49 M/mm3 (4.00-5.60); RDW 14.4 % (11.9-15.9); WHITE BLOOD COUNT 4.8 K/mm3 (4.0-10.0)
[2023-01-03 09:39] LABS: INR 1.18 (0.83-1.09); PROTHROMBIN TIME (PATIENT) 13.7 SEC (9.7-13.0)
[2023-01-03] MEDS ORDERED: PANTOPRAZOLE SODIUM 40 MG VIAL IVPUSH SCH (10:00)
[2023-01-03 10:20] LABS: CHLORIDE 103 mmol/L (98-107); SODIUM 140 mmol/L (136-145)
[2023-01-03] MEDS: predniSONE 5 MG TABLET (UD) PO SCH (10:21)
[2023-01-03 10:30] LABS: ALBUMIN 3.5 g/dl (3.4-5.0); ANION GAP 17 MMOL/L (8-16); CALCIUM 8.6 mg/dL (8.5-10.1); CO2 21 mmol/L (21-32); GLUCOSE,RANDOM 85 mg/dL (74-106)
[2023-01-03 10:31] LABS: MAGNESIUM 2.2 mg/dL (1.8-2.4)
[2023-01-03 10:33] LABS: PHOSPHOROUS 8.1 mg/dL (2.5-4.9); SGOT/AST 6 U/L (15-37); SGPT/ALT 24 U/L (13-61)
[2023-01-03 10:34] LABS: TOT PROT 5.8 g/dl (6.4-8.2)
[2023-01-03 10:35] LABS: BILIRUBIN,TOTAL 0.8 mg/dL (0.2-1)
[2023-01-03 10:36] LABS: ALK PHOS 98 U/L (45-117)
[2023-01-03 10:44] LABS: BLOOD UREA NITROGEN 128.7 mg/dL (7-18)
[2023-01-03] MEDS ORDERED: ACETAMINOPHEN 325 MG TABLET (FP) PO PRN (15:53)
[2023-01-03] MEDS: CHLORHEXIDINE GLUCONATE 4% CLEANSER FOR DECOLONIZATION TP SCH (21:39)
[2023-01-03] MEDS: ATORVASTATIN CA 20 MG TABLET (FP) PO SCH (21:40)
[2023-01-04] MEDS: hydrALAZINE HCL 25 MG TABLET (FP) PO SCH ×2 (06:24→14:43)
[2023-01-04] MEDS: HEPARIN NA (PORCINE) 5,000 UNITS/ML 1ML VIAL SQ SCH ×2 (06:25→14:43)
[2023-01-04] MEDS: TACROLIMUS ANHYDROUS 1 MG CAPSULE PO SCH (07:11)
[2023-01-04 09:32] LABS: BASO % 0.5 % (0-2.0); EOS % 2.8 % (0-4.5); HEMATOCRIT 34.8 % (35.4-49); HEMOGLOBIN 11.3 GM/dL (11.7-16.9); LYMPH % 39.5 % (8-40); MCH 30.3 pg (25.7-33.7); MCHC 32.4 g/dl (32.0-35.9); MEAN CELL VOLUME 93.6 fl (80-96); MEAN PLT VOLUME 10.5 fl (7.5-11.1); MONO % 17.1 % (3.8-10.2); NEUT % 40.1 % (42.8-82.8); PLATELET COUNT 119 10^3/uL (134-434); RBC 3.72 M/mm3 (4.00-5.60); RDW 14.3 % (11.9-15.9); WHITE BLOOD COUNT 5.5 K/mm3 (4.0-10.0)
[2023-01-04 09:53] LABS: CHLORIDE 100 mmol/L (98-107); SODIUM 143 mmol/L (136-145)
[2023-01-04] MEDS ORDERED: PANTOPRAZOLE 40 MG TABLET PO SCH (09:53)
[2023-01-04 09:59] LABS: ALBUMIN 3.6 g/dl (3.4-5.0); ANION GAP 14 MMOL/L (8-16); CALCIUM 8.5 mg/dL (8.5-10.1); CO2 29 mmol/L (21-32); GLUCOSE,RANDOM 184 mg/dL (74-106); MAGNESIUM 2.1 mg/dL (1.8-2.4)
[2023-01-04 10:02] LABS: PHOSPHOROUS 7.1 mg/dL (2.5-4.9); SGOT/AST 7 U/L (15-37); SGPT/ALT 25 U/L (13-61)
[2023-01-04 10:03] LABS: BILIRUBIN,TOTAL 0.6 mg/dL (0.2-1); TOT PROT 6.4 g/dl (6.4-8.2)
[2023-01-04 10:04] LABS: ALK PHOS 109 U/L (45-117)
[2023-01-04 10:07] LABS: BLOOD UREA NITROGEN 70.5 mg/dL (7-18); CREATININE 10.3 mg/dL (0.55-1.3)
[2023-01-04] MEDS: ASPIRIN 81 MG CHEWABLE TABLETS PO SCH (10:59)
[2023-01-04] MEDS: MYCOPHENOLATE MOFETIL 250 MG CAPSULE PO SCH (10:59)
[2023-01-04] MEDS: predniSONE 5 MG TABLET (UD) PO SCH (10:59)
[2023-01-04] MEDS: SODIUM ZIRCONIUM CYCLOSILICATE (LOKELMA) 5 GM PACKET PO SCH (11:00)
[2023-01-04] MEDS: SEVELAMER CARBONATE 800 MG TAB (FP) PO SCH ×3 (11:01→17:08)
[2023-01-04 13:11] VITALS: BMI 26.3
[2023-01-04] MEDS: DOXAZOSIN MESYLATE 4 MG TABLET PO SCH (14:43)
[2023-01-04] MEDS: MUPIROCIN 2% TOPICAL OINTMENT FOR DECOLONIZATION NS SCH (14:44)
[2023-01-04 14:59] VITALS: BP 147/79; PULSE 86; RESP 19; TEMP 98.2
== END 2023-01-04 17:35 | disposition home or self-care (01) | DRG 640 ==
LOC: JER 15:14 → JERBED 18:58 → JICU 19:47 → J7W 01-04 02:24
PROVIDERS: ADMIT Internal Medicine Pulmonary Disease; ATTEND Internal Medicine
PROC: 5A1D70Z Performance of Urinary Filtration, Intermittent, Less than 6 Hours Per Day (ICD-10-PCS; principal; 2023-01-03)
PROC: 5A1D70Z Performance of Urinary Filtration, Intermittent, Less than 6 Hours Per Day (ICD-10-PCS; 2023-01-03)
DX: E87.70 Fluid overload, unspecified (principal); N18.6 End stage renal disease; I13.2 Hypertensive heart and chronic kidney disease with heart failure and with stage 5 chronic kidney disease, or end stage renal disease; I50.22 Chronic systolic (congestive) heart failure; I42.0 Dilated cardiomyopathy; Z94.1 Heart transplant status; I45.2 Bifascicular block; E27.1 Primary adrenocortical insufficiency; D69.6 Thrombocytopenia, unspecified; I25.119 Atherosclerotic heart disease of native coronary artery with unspecified angina pectoris; E87.5 Hyperkalemia; M79.7 Fibromyalgia; I27.20 Pulmonary hypertension, unspecified; I44.0 Atrioventricular block, first degree; Z86.718 Personal history of other venous thrombosis and embolism; Z87.11 Personal history of peptic ulcer disease; Z99.2 Dependence on renal dialysis
CPT/HCPCS: 0241U-QW; 36415; 71045-TC-FY; 80048; 80053; 82803; 82962; 83605; 83735; 83880; 84100; 84484; 85025; 85610; 86803; 87340; 93005; 93010; 97116-GP; 97161-GP; 99291; J1644; J7517

== ENCOUNTER 2023-03-06 11:50 | Observation (INO) | payer OTHER ==
[2023-03-06 11:59] VITALS: BMI 27.8
[2023-03-06 14:58] LABS: BASO % 0.4 % (0-2.0); EOS % 5.3 % (0-4.5); HEMATOCRIT 37.4 % (35.4-49); HEMOGLOBIN 11.8 GM/dL (11.7-16.9); LYMPH % 37.6 % (8-40); MCH 30.5 pg (25.7-33.7); MCHC 31.5 g/dl (32.0-35.9); MEAN CELL VOLUME 96.6 fl (80-96); MEAN PLT VOLUME 10.9 fl (7.5-11.1); MONO % 13.4 % (3.8-10.2); NEUT % 43.3 % (42.8-82.8); PLATELET COUNT 98 10^3/uL (134-434); RBC 3.87 M/mm3 (4.00-5.60); RDW 17.2 % (11.9-15.9)
[2023-03-06 15:21] LABS: CHLORIDE 108 mmol/L (98-107); SODIUM 142 mmol/L (136-145)
[2023-03-06 15:23] LABS: CALCIUM 8.4 mg/dL (8.5-10.1)
[2023-03-06 15:24] LABS: ALBUMIN 4.3 g/dl (3.4-5.0); CO2 20 mmol/L (21-32); GLUCOSE,RANDOM 91 mg/dL (74-106)
[2023-03-06 15:27] LABS: SGOT/AST 20 U/L (15-37); SGPT/ALT 39 U/L (13-61)
[2023-03-06 15:29] LABS: BILIRUBIN,TOTAL 0.7 mg/dL (0.2-1); TOT PROT 6.9 g/dl (6.4-8.2)
[2023-03-06 15:30] LABS: ALK PHOS 87 U/L (45-117)
[2023-03-06 16:00] LABS: ANION GAP 14 MMOL/L (8-16); BLOOD UREA NITROGEN 119.3 mg/dL (7-18); CREATININE 13.3 mg/dL (0.55-1.3); N-TERMINAL BNP 113291.7 pg/ml (5-125)
[2023-03-06] MEDS ORDERED: SODIUM CHLORIDE 250 ML IV PRN (16:54)
[2023-03-06 19:40] LABS: CHLORIDE 108 mmol/L (98-107); POTASSIUM 5.8 mmol/L (3.5-5.1)
[2023-03-06 19:42] LABS: CALCIUM 8.5 mg/dL (8.5-10.1)
[2023-03-06 19:43] LABS: ALBUMIN 4.5 g/dl (3.4-5.0); CO2 20 mmol/L (21-32); GLUCOSE,RANDOM 182 mg/dL (74-106)
[2023-03-06 19:46] LABS: SGOT/AST 9 U/L (15-37); SGPT/ALT 39 U/L (13-61)
[2023-03-06 19:47] LABS: BILIRUBIN,TOTAL 0.7 mg/dL (0.2-1); TOT PROT 7.2 g/dl (6.4-8.2)
[2023-03-06 19:49] LABS: ALK PHOS 88 U/L (45-117)
[2023-03-06 19:54] LABS: ANION GAP 15 MMOL/L (8-16); BLOOD UREA NITROGEN 119.8 mg/dL (7-18); CREATININE 13.7 mg/dL (0.55-1.3); SODIUM 143 mmol/L (136-145)
[2023-03-06 21:15] LABS: URIC ACID 7.6 mg/dL (2.6-7.2)
[2023-03-06] MEDS ORDERED: CARVEDILOL 12.5 MG TABLET (FP) PO SCH (22:00)
[2023-03-06] MEDS ORDERED: MAGNESIUM OXIDE 400 MG TABLET (FP) PO SCH (22:00)
[2023-03-06] MEDS ORDERED: HEPARIN NA (PORCINE) 5,000 UNITS/ML 1ML VIAL SQ SCH (22:00)
[2023-03-06] MEDS ORDERED: TACROLIMUS ANHYDROUS 1 MG CAPSULE PO SCH (22:00)
[2023-03-06] MEDS ORDERED: DOXAZOSIN MESYLATE 4 MG PO SCH (22:00)
[2023-03-07] MEDS ORDERED: MAGNESIUM OXIDE 400 MG TABLET (FP) ONE (00:46)
[2023-03-07] MEDS ORDERED: hydrALAZINE HCL 50 MG TABLET (FP) ONE ×3 (00:46→06:40)
[2023-03-07] MEDS ORDERED: CARVEDILOL 12.5 MG TABLET (FP) ONE (00:46)
[2023-03-07] MEDS ORDERED: HEPARIN NA (PORCINE) 5,000 UNITS/ML 1ML VIAL ONE (00:47)
[2023-03-07] MEDS ORDERED: SEVELAMER CARBONATE 800 MG TAB (FP) ONE (00:47)
[2023-03-07] MEDS: SEVELAMER CARBONATE 800 MG TAB (FP) PO SCH ×2 (00:52→09:20)
[2023-03-07] MEDS: hydrALAZINE HCL 50 MG TABLET (FP) PO SCH ×2 (00:52→06:49)
[2023-03-07] MEDS ORDERED: FOLIC ACID 1 MG TABLET (FP) ONE (01:00)
[2023-03-07] MEDS ORDERED: TACROLIMUS ANHYDROUS 1 MG CAPSULE PO SCH (07:00)
[2023-03-07 07:31] LABS: BASO % 0.5 % (0-2.0); EOS % 5.7 % (0-4.5); HEMATOCRIT 35.4 % (35.4-49); HEMOGLOBIN 11.6 GM/dL (11.7-16.9); LYMPH % 33.8 % (8-40); MCH 31.1 pg (25.7-33.7); MCHC 32.7 g/dl (32.0-35.9); MEAN PLT VOLUME 10.3 fl (7.5-11.1); MONO % 13.2 % (3.8-10.2); NEUT % 46.8 % (42.8-82.8); PLATELET COUNT 87 10^3/uL (134-434); RBC 3.73 M/mm3 (4.00-5.60); RDW 16.3 % (11.9-15.9); WHITE BLOOD COUNT 4.3 K/mm3 (4.0-10.0)
[2023-03-07 07:50] LABS: CHLORIDE 106 mmol/L (98-107); POTASSIUM 5.1 mmol/L (3.5-5.1); SODIUM 142 mmol/L (136-145)
[2023-03-07 07:53] LABS: GLUCOSE,RANDOM 75 mg/dL (74-106)
[2023-03-07 07:54] LABS: ALBUMIN 4.3 g/dl (3.4-5.0); ANION GAP 10 MMOL/L (8-16); CO2 27 mmol/L (21-32)
[2023-03-07 07:56] LABS: SGPT/ALT 42 U/L (13-61)
[2023-03-07 07:57] LABS: PHOSPHOROUS 5.5 mg/dL (2.5-4.9); SGOT/AST 15 U/L (15-37)
[2023-03-07 07:58] LABS: BILIRUBIN,TOTAL 0.8 mg/dL (0.2-1); TOT PROT 6.7 g/dl (6.4-8.2)
[2023-03-07 07:59] LABS: ALK PHOS 96 U/L (45-117)
[2023-03-07 08:04] LABS: BLOOD UREA NITROGEN 67.3 mg/dL (7-18); CREATININE 9.4 mg/dL (0.55-1.3)
[2023-03-07 09:30] VITALS: PULSE 80; RESP 18
[2023-03-07] MEDS ORDERED: predniSONE 5 MG TABLET (UD) PO SCH (10:00)
[2023-03-07] MEDS ORDERED: ASPIRIN 81 MG CHEWABLE TABLETS PO SCH (10:00)
[2023-03-07] MEDS ORDERED: VITAMIN B COMP W-C 1 EA TABLET (NEPHRO-VITE) PO SCH (10:00)
[2023-03-07] MEDS ORDERED: amLODIPine BESYLATE 10 MG TABLET (FP) PO SCH (10:00)
[2023-03-07] MEDS ORDERED: SODIUM ZIRCONIUM CYCLOSILICATE (LOKELMA) 5 GM PACKET PO ONE (14:00)
[2023-03-07 14:22] VITALS: BP 149/87; TEMP 98.5
[2023-03-07] MEDS ORDERED: ATORVASTATIN CA 20 MG TABLET (FP) PO SCH (22:00)
== END 2023-03-07 14:00 | disposition home or self-care (01) ==
LOC: JER 11:50 → JERBED 16:35 → INTOOBSV 16:59 → JERBED 16:59 → UNDOADMOB 16:59
PROVIDERS: ADMIT Internal Medicine
PROC: 3E023GC Introduction of Other Therapeutic Substance into Muscle, Percutaneous Approach (ICD-10-PCS; principal; 2023-03-06)
DX: I13.2 Hypertensive heart and chronic kidney disease with heart failure and with stage 5 chronic kidney disease, or end stage renal disease (principal); Z94.1 Heart transplant status; N18.6 End stage renal disease; Z99.2 Dependence on renal dialysis; D64.9 Anemia, unspecified; I25.10 Atherosclerotic heart disease of native coronary artery without angina pectoris; Z95.810 Presence of automatic (implantable) cardiac defibrillator; R06.00 Dyspnea, unspecified; E87.8 Other disorders of electrolyte and fluid balance, not elsewhere classified; K40.90 Unilateral inguinal hernia, without obstruction or gangrene, not specified as recurrent; Z29.8 Encounter for other specified prophylactic measures; M10.9 Gout, unspecified; Z91.148 Patient's other noncompliance with medication regimen for other reason; Z88.8 Allergy status to other drugs, medicaments and biological substances
CPT/HCPCS: 36415; 71045-TC-FY; 73562-TC-RT-FY; 80053; 83735; 83880; 84100; 84484; 84550; 85025; 86704; 86705; 86803; 87340; 87517; 93005; 93010; 93970-TC; 96372; 99285-25; G0378; J1644

== ENCOUNTER 2023-03-31 07:40 | Inpatient (IN) | payer OTHER ==
[2023-03-31 08:46] LABS: BASO % 0.9 % (0-2.0); EOS % 3.2 % (0-4.5); HEMATOCRIT 28.2 % (35.4-49); HEMOGLOBIN 9.4 GM/dL (11.7-16.9); LYMPH % 31.5 % (8-40); MCH 30.9 pg (25.7-33.7); MCHC 33.2 g/dl (32.0-35.9); MEAN CELL VOLUME 92.9 fl (80-96); MEAN PLT VOLUME 10.1 fl (7.5-11.1); MONO % 16.1 % (3.8-10.2); NEUT % 48.3 % (42.8-82.8); PLATELET COUNT 97 10^3/uL (134-434); RBC 3.04 M/mm3 (4.00-5.60); RDW 15.4 % (11.9-15.9); WHITE BLOOD COUNT 4.9 K/mm3 (4.0-10.0)
[2023-03-31 09:06] LABS: CHLORIDE 104 mmol/L (98-107); POTASSIUM 5.9 mmol/L (3.5-5.1); SODIUM 140 mmol/L (136-145)
[2023-03-31 09:08] LABS: ALBUMIN 4.1 g/dl (3.4-5.0); ANION GAP 14 MMOL/L (8-16); CALCIUM 7.9 mg/dL (8.5-10.1); CO2 21 mmol/L (21-32); GLUCOSE,RANDOM 136 mg/dL (74-106)
[2023-03-31 09:11] LABS: SGOT/AST 5 U/L (15-37); SGPT/ALT 28 U/L (13-61)
[2023-03-31 09:13] LABS: BILIRUBIN,TOTAL 0.6 mg/dL (0.2-1); TOT PROT 6.6 g/dl (6.4-8.2)
[2023-03-31 09:14] LABS: ALK PHOS 120 U/L (45-117)
[2023-03-31 09:19] LABS: BLOOD UREA NITROGEN 143.4 mg/dL (7-18); N-TERMINAL BNP > 35000.0 pg/ml (5-125)
[2023-03-31] MEDS ORDERED: ALPRAZolam 0.25 MG TABLET PO PRN (09:49)
[2023-03-31] MEDS ORDERED: LORATADINE 10 MG TABLET PO PRN (09:49)
[2023-03-31] MEDS ORDERED: ATORVASTATIN CA 20 MG TABLET (FP) PO SCH ×3 (10:00→22:00)
[2023-03-31] MEDS ORDERED: COLCHICINE 0.6 MG CAPSULE PO SCH (10:00)
[2023-03-31] MEDS ORDERED: SODIUM ZIRCONIUM CYCLOSILICATE (LOKELMA) 5 GM PACKET PO SCH ×3 (10:00→18:00)
[2023-03-31] MEDS ORDERED: COLCHICINE 0.6 MG TAB PO SCH (10:26)
[2023-03-31] MEDS: HEPARIN NA (PORCINE) 5,000 UNITS/ML 1ML VIAL SQ SCH ×2 (10:45→21:58)
[2023-03-31] MEDS: TORSEMIDE 100 MG TABLET PO SCH ×2 (10:52→22:13)
[2023-03-31] MEDS: CARVEDILOL 12.5 MG TABLET (FP) PO SCH ×2 (11:00→21:54)
[2023-03-31] MEDS: DOXAZOSIN MESYLATE 4 MG TABLET PO SCH ×2 (11:00→22:12)
[2023-03-31] MEDS ORDERED: ALPRAZolam 0.25 MG TABLET ONE (11:12)
[2023-03-31] MEDS: SEVELAMER CARBONATE 800 MG TAB (FP) PO SCH ×2 (14:00→18:11)
[2023-03-31] MEDS: hydrALAZINE HCL 25 MG TABLET (FP) PO SCH ×2 (15:01→21:54)
[2023-03-31 15:22] VITALS: BMI 28.4
[2023-03-31] MEDS: ASPIRIN 81 MG CHEWABLE TABLETS PO SCH (16:31)
[2023-03-31] MEDS: amLODIPine BESYLATE 5 MG TABLET (FP) PO SCH (16:31)
[2023-03-31] MEDS: predniSONE 5 MG TABLET (UD) PO SCH (16:32)
[2023-03-31] MEDS: VITAMIN B COMP W-C 1 EA TABLET (NEPHRO-VITE) PO SCH (16:33)
[2023-03-31] MEDS ORDERED: TACROLIMUS ANHYDROUS 1 MG CAPSULE PO SCH (22:00)
[2023-04-01] MEDS ORDERED: TACROLIMUS ANHYDROUS 1 MG CAPSULE PO SCH (07:00)
[2023-04-01] MEDS: hydrALAZINE HCL 25 MG TABLET (FP) PO SCH ×3 (07:02→21:39)
[2023-04-01] MEDS: VITAMIN B COMP W-C 1 EA TABLET (NEPHRO-VITE) PO SCH (09:35)
[2023-04-01] MEDS: SEVELAMER CARBONATE 800 MG TAB (FP) PO SCH ×3 (09:35→16:34)
[2023-04-01] MEDS: CARVEDILOL 12.5 MG TABLET (FP) PO SCH ×2 (09:35→21:39)
[2023-04-01] MEDS: predniSONE 5 MG TABLET (UD) PO SCH (09:35)
[2023-04-01] MEDS: ASPIRIN 81 MG CHEWABLE TABLETS PO SCH (09:35)
[2023-04-01] MEDS: HEPARIN NA (PORCINE) 5,000 UNITS/ML 1ML VIAL SQ SCH ×2 (09:35→21:40)
[2023-04-01] MEDS: amLODIPine BESYLATE 5 MG TABLET (FP) PO SCH (09:36)
[2023-04-01] MEDS: DOXAZOSIN MESYLATE 4 MG TABLET PO SCH ×2 (09:37→21:39)
[2023-04-01] MEDS: TORSEMIDE 100 MG TABLET PO SCH ×2 (09:37→13:10)
[2023-04-01] MEDS ORDERED: LORATADINE 10 MG TABLET PO PRN (10:10)
[2023-04-01 10:47] LABS: BASO % 0.5 % (0-2.0); EOS % 4.1 % (0-4.5); HEMATOCRIT 28.8 % (35.4-49); HEMOGLOBIN 9.3 GM/dL (11.7-16.9); MCH 30.5 pg (25.7-33.7); MCHC 32.3 g/dl (32.0-35.9); MEAN CELL VOLUME 94.6 fl (80-96); MEAN PLT VOLUME 8.7 fl (7.5-11.1); NEUT % 42.4 % (42.8-82.8); PLATELET COUNT 103 10^3/uL (134-434); RBC 3.05 M/mm3 (4.00-5.60); RDW 15.1 % (11.9-15.9); WHITE BLOOD COUNT 4.8 K/mm3 (4.0-10.0)
[2023-04-01 11:07] LABS: CHLORIDE 101 mmol/L (98-107); POTASSIUM 4.8 mmol/L (3.5-5.1); SODIUM 139 mmol/L (136-145)
[2023-04-01 11:09] LABS: CALCIUM 7.7 mg/dL (8.5-10.1)
[2023-04-01 11:10] LABS: ANION GAP 11 MMOL/L (8-16); CO2 28 mmol/L (21-32); GLUCOSE,RANDOM 172 mg/dL (74-106)
[2023-04-01 11:13] LABS: BLOOD UREA NITROGEN 92.9 mg/dL (7-18); CREATININE 12.2 mg/dL (0.55-1.3)
[2023-04-01] MEDS: SODIUM ZIRCONIUM CYCLOSILICATE (LOKELMA) 5 GM PACKET PO SCH (11:48)
[2023-04-01] MEDS ORDERED: SODIUM ZIRCONIUM CYCLOSILICATE (LOKELMA) 5 GM PACKET PO SCH (12:00)
[2023-04-01] MEDS ORDERED: SODIUM CHLORIDE 250 ML IV PRN (20:54)
[2023-04-01] MEDS: ATORVASTATIN CA 20 MG TABLET (FP) PO SCH (21:39)
[2023-04-01] MEDS: TACROLIMUS ANHYDROUS 1 MG CAPSULE PO SCH (21:39)
[2023-04-02] MEDS ORDERED: SODIUM CHLORIDE FOR INHALATION 3 ML VIAL.NEB IH ONE (01:24)
[2023-04-02] MEDS: hydrALAZINE HCL 25 MG TABLET (FP) PO SCH ×4 (05:52→21:18)
[2023-04-02] MEDS: TORSEMIDE 100 MG TABLET PO SCH ×2 (05:57→14:57)
[2023-04-02] MEDS: TACROLIMUS ANHYDROUS 1 MG CAPSULE PO SCH ×2 (06:00→21:16)
[2023-04-02] MEDS: ALPRAZolam 0.25 MG TABLET PO PRN (06:06)
[2023-04-02] MEDS: amLODIPine BESYLATE 5 MG TABLET (FP) PO SCH (12:50)
[2023-04-02] MEDS: VITAMIN B COMP W-C 1 EA TABLET (NEPHRO-VITE) PO SCH (12:50)
[2023-04-02] MEDS: ASPIRIN 81 MG CHEWABLE TABLETS PO SCH (12:50)
[2023-04-02] MEDS: predniSONE 5 MG TABLET (UD) PO SCH (12:50)
[2023-04-02] MEDS: COLCHICINE 0.6 MG TAB PO SCH (12:50)
[2023-04-02] MEDS: CARVEDILOL 12.5 MG TABLET (FP) PO SCH ×2 (12:51→21:18)
[2023-04-02] MEDS: HEPARIN NA (PORCINE) 5,000 UNITS/ML 1ML VIAL SQ SCH ×3 (12:52→21:25)
[2023-04-02] MEDS: DOXAZOSIN MESYLATE 4 MG TABLET PO SCH ×2 (12:52→21:21)
[2023-04-02] MEDS: SODIUM ZIRCONIUM CYCLOSILICATE (LOKELMA) 5 GM PACKET PO SCH (12:53)
[2023-04-02] MEDS: SEVELAMER CARBONATE 800 MG TAB (FP) PO SCH ×3 (12:53→18:36)
[2023-04-02 13:49] LABS: HEMATOCRIT 28.6 % (35.4-49); HEMOGLOBIN 9.6 GM/dL (11.7-16.9); MCH 31.2 pg (25.7-33.7); MCHC 33.6 g/dl (32.0-35.9); MEAN CELL VOLUME 92.8 fl (80-96); MEAN PLT VOLUME 8.8 fl (7.5-11.1); PLATELET COUNT 107 10^3/uL (134-434); RBC 3.08 M/mm3 (4.00-5.60); RDW 15.2 % (11.9-15.9); WHITE BLOOD COUNT 4.8 K/mm3 (4.0-10.0)
[2023-04-02 13:55] LABS: INR 1.16 (0.83-1.09); PROTHROMBIN TIME (PATIENT) 13.4 SEC (9.7-13.0)
[2023-04-02 13:58] LABS: ACTIVATED PTT 30.7 SECONDS (25.2-36.5)
[2023-04-02 14:11] LABS: POTASSIUM 3.7 mmol/L (3.5-5.1)
[2023-04-02] MEDS ORDERED: SODIUM CHLORIDE 250 ML IV PRN (14:18)
[2023-04-02 14:22] LABS: ALBUMIN 3.9 g/dl (3.4-5.0); CALCIUM 7.7 mg/dL (8.5-10.1)
[2023-04-02 14:25] LABS: CREATININE 7.1 mg/dL (0.55-1.3)
[2023-04-02 14:26] LABS: BILIRUBIN,TOTAL 0.6 mg/dL (0.2-1); TOT PROT 6.6 g/dl (6.4-8.2)
[2023-04-02 14:45] LABS: ANISOCYTOSIS 0; HELMET CELLS 0; HOWELL-JOLLY BODIES 0; MACROCYTOSIS 0; OVALOCYTE 0; ROULEAU 0; SICKELED CELLS 0; TARGET CELLS 0; TEAR DROP CELLS 0; TOXIC GRANULATION 0
[2023-04-02] MEDS: ATORVASTATIN CA 20 MG TABLET (FP) PO SCH (21:18)
[2023-04-03] MEDS: ALPRAZolam 0.25 MG TABLET PO PRN (02:11)
[2023-04-03] MEDS: TACROLIMUS ANHYDROUS 1 MG CAPSULE PO SCH ×2 (06:04→21:05)
[2023-04-03] MEDS: hydrALAZINE HCL 25 MG TABLET (FP) PO SCH ×3 (06:04→21:10)
[2023-04-03] MEDS: TORSEMIDE 100 MG TABLET PO SCH ×2 (06:05→14:14)
[2023-04-03] MEDS ORDERED: HEPARIN NA (PORCINE) 5,000 UNITS/ML 1ML VIAL IVPUSH ONE (08:30)
[2023-04-03] MEDS ORDERED: EPOETIN ALFA-EPBX 4,000 UNIT/ML VIAL IVPUSH ONE (08:30)
[2023-04-03 10:23] LABS: MAGNESIUM 1.9 mg/dL (1.8-2.4)
[2023-04-03 10:26] LABS: PHOSPHOROUS 5.5 mg/dL (2.5-4.9)
[2023-04-03] MEDS: SODIUM ZIRCONIUM CYCLOSILICATE (LOKELMA) 5 GM PACKET PO SCH (11:59)
[2023-04-03] MEDS: VITAMIN B COMP W-C 1 EA TABLET (NEPHRO-VITE) PO SCH (12:00)
[2023-04-03] MEDS: COLCHICINE 0.6 MG TAB PO SCH (12:00)
[2023-04-03] MEDS: CARVEDILOL 12.5 MG TABLET (FP) PO SCH ×2 (12:00→21:06)
[2023-04-03] MEDS: SEVELAMER CARBONATE 800 MG TAB (FP) PO SCH ×3 (12:00→17:29)
[2023-04-03] MEDS: ASPIRIN 81 MG CHEWABLE TABLETS PO SCH (12:00)
[2023-04-03] MEDS: predniSONE 5 MG TABLET (UD) PO SCH (12:01)
[2023-04-03] MEDS: amLODIPine BESYLATE 5 MG TABLET (FP) PO SCH (12:01)
[2023-04-03] MEDS: DOXAZOSIN MESYLATE 4 MG TABLET PO SCH ×2 (12:01→21:26)
[2023-04-03] MEDS: HEPARIN NA (PORCINE) 5,000 UNITS/ML 1ML VIAL SQ SCH ×2 (12:02→21:10)
[2023-04-03 12:12] VITALS: RESP 18
[2023-04-03 14:59] LABS: HEMATOCRIT 28.5 % (35.4-49); HEMOGLOBIN 9.6 GM/dL (11.7-16.9); MCH 31.2 pg (25.7-33.7); MCHC 33.6 g/dl (32.0-35.9); MEAN PLT VOLUME 9.6 fl (7.5-11.1); PLATELET COUNT 117 10^3/uL (134-434); RBC 3.06 M/mm3 (4.00-5.60); RDW 15.8 % (11.9-15.9); WHITE BLOOD COUNT 4.9 K/mm3 (4.0-10.0)
[2023-04-03] MEDS: ATORVASTATIN CA 20 MG TABLET (FP) PO SCH (21:05)
[2023-04-04] MEDS: TACROLIMUS ANHYDROUS 1 MG CAPSULE PO SCH (06:09)
[2023-04-04] MEDS: TORSEMIDE 100 MG TABLET PO SCH ×2 (06:10→14:45)
[2023-04-04] MEDS: hydrALAZINE HCL 25 MG TABLET (FP) PO SCH ×2 (06:11→14:45)
[2023-04-04] MEDS: SEVELAMER CARBONATE 800 MG TAB (FP) PO SCH ×2 (08:05→12:03)
[2023-04-04 09:14] VITALS: BP 158/90; PULSE 80; TEMP 98.8
[2023-04-04 10:17] LABS: HEMATOCRIT 30.3 % (35.4-49); HEMOGLOBIN 10.1 GM/dL (11.7-16.9); MCH 31.3 pg (25.7-33.7); MCHC 33.2 g/dl (32.0-35.9); MEAN CELL VOLUME 94.2 fl (80-96); MEAN PLT VOLUME 9.7 fl (7.5-11.1); PLATELET COUNT 116 10^3/uL (134-434); RBC 3.21 M/mm3 (4.00-5.60); RDW 15.7 % (11.9-15.9); WHITE BLOOD COUNT 5.2 K/mm3 (4.0-10.0)
[2023-04-04] MEDS: amLODIPine BESYLATE 5 MG TABLET (FP) PO SCH (10:45)
[2023-04-04] MEDS: CARVEDILOL 12.5 MG TABLET (FP) PO SCH (10:46)
[2023-04-04] MEDS: ASPIRIN 81 MG CHEWABLE TABLETS PO SCH (10:46)
[2023-04-04] MEDS: predniSONE 5 MG TABLET (UD) PO SCH (10:46)
[2023-04-04] MEDS: VITAMIN B COMP W-C 1 EA TABLET (NEPHRO-VITE) PO SCH (10:46)
[2023-04-04] MEDS: DOXAZOSIN MESYLATE 4 MG TABLET PO SCH (10:47)
[2023-04-04] MEDS: COLCHICINE 0.6 MG TAB PO SCH (10:48)
[2023-04-04] MEDS: HEPARIN NA (PORCINE) 5,000 UNITS/ML 1ML VIAL SQ SCH (10:50)
[2023-04-04 10:52] LABS: ANISOCYTOSIS 0; HELMET CELLS 0; HOWELL-JOLLY BODIES 0; MACROCYTOSIS 0; OVALOCYTE 0; ROULEAU 0; SICKELED CELLS 0; TARGET CELLS 0; TEAR DROP CELLS 0; TOXIC GRANULATION 0
[2023-04-04 11:14] LABS: CHLORIDE 99 mmol/L (98-107); POTASSIUM 4.8 mmol/L (3.5-5.1); SODIUM 138 mmol/L (136-145)
[2023-04-04 11:16] LABS: ANION GAP 8 MMOL/L (8-16); CALCIUM 8.5 mg/dL (8.5-10.1); CO2 31 mmol/L (21-32); GLUCOSE,RANDOM 94 mg/dL (74-106)
[2023-04-04 11:20] LABS: SGOT/AST 4 U/L (15-37); SGPT/ALT 26 U/L (13-61)
[2023-04-04 11:22] LABS: ALK PHOS 111 U/L (45-117); BILIRUBIN,TOTAL 0.6 mg/dL (0.2-1); TOT PROT 6.7 g/dl (6.4-8.2)
[2023-04-04 11:23] LABS: CREATININE 7.9 mg/dL (0.55-1.3)
[2023-04-04] MEDS: SODIUM ZIRCONIUM CYCLOSILICATE (LOKELMA) 5 GM PACKET PO SCH (12:03)
[2023-04-04] MEDS ORDERED: SODIUM CHLORIDE 250 ML IV PRN (13:35)
[2023-04-05] MEDS ORDERED: EPOETIN ALFA-EPBX 4,000 UNIT/ML VIAL IVPUSH ONE (13:35)
[2023-04-07] MEDS ORDERED: cloNIDine-TTS 0.3 MG /24 HRS PATCH.TDWK TD SCH ×2 (10:00)
== END 2023-04-04 16:26 | disposition home or self-care (01) | DRG 640 ==
LOC: JER 07:40 → JERBED 09:27 → J5S 13:40
PROVIDERS: ADMIT Internal Medicine; ATTEND Internal Medicine
PROC: 5A1D70Z Performance of Urinary Filtration, Intermittent, Less than 6 Hours Per Day (ICD-10-PCS; principal; 2023-03-31)
PROC: 5A1D70Z Performance of Urinary Filtration, Intermittent, Less than 6 Hours Per Day (ICD-10-PCS; 2023-03-31)
PROC: 5A1D70Z Performance of Urinary Filtration, Intermittent, Less than 6 Hours Per Day (ICD-10-PCS; 2023-04-02)
DX: E87.70 Fluid overload, unspecified (principal); N18.6 End stage renal disease; E27.1 Primary adrenocortical insufficiency; N17.9 Acute kidney failure, unspecified; Z94.1 Heart transplant status; I13.2 Hypertensive heart and chronic kidney disease with heart failure and with stage 5 chronic kidney disease, or end stage renal disease; I50.22 Chronic systolic (congestive) heart failure; I25.10 Atherosclerotic heart disease of native coronary artery without angina pectoris; Z99.2 Dependence on renal dialysis; E87.5 Hyperkalemia; M10.9 Gout, unspecified; M79.7 Fibromyalgia; G47.33 Obstructive sleep apnea (adult) (pediatric); I25.5 Ischemic cardiomyopathy; E78.5 Hyperlipidemia, unspecified; N40.0 Benign prostatic hyperplasia without lower urinary tract symptoms; F41.8 Other specified anxiety disorders; Z87.11 Personal history of peptic ulcer disease; I27.20 Pulmonary hypertension, unspecified; Z91.158 Patient's noncompliance with renal dialysis for other reason
CPT/HCPCS: 0241U-QW; 36415; 71045-TC-FY; 80048; 80053; 83735; 83880; 84100; 84484; 85025; 85027; 85610; 85730; 86803; 87340; 93005; 93010; 97116-GP; 97162-GP; 99285-25; J1644; Q5106

== ENCOUNTER 2023-05-26 12:27 | Emergency (ER) | payer OTHER ==
[2023-05-26 12:44] VITALS: RESP 17; BMI 29.5
[2023-05-26 14:09] LABS: HEMATOCRIT 38.2 % (35.4-49); HEMOGLOBIN 12.7 GM/dL (11.7-16.9); MCH 30.9 pg (25.7-33.7); MCHC 33.3 g/dl (32.0-35.9); MEAN CELL VOLUME 92.7 fl (80-96); PLATELET COUNT 139 10^3/uL (134-434); RBC 4.12 M/mm3 (4.00-5.60); RDW 16.8 % (11.9-15.9); WHITE BLOOD COUNT 5.3 K/mm3 (4.0-10.0)
[2023-05-26 14:30] LABS: INR 1.26 (0.83-1.09); PROTHROMBIN TIME (PATIENT) 14.6 SEC (9.7-13.0)
[2023-05-26 14:32] LABS: ANISOCYTOSIS 0; HELMET CELLS 0; HOWELL-JOLLY BODIES 0; MACROCYTOSIS 0; OVALOCYTE 0; ROULEAU 0; SICKELED CELLS 0; TARGET CELLS 0; TEAR DROP CELLS 0; TOXIC GRANULATION 0
[2023-05-26 14:33] LABS: ACTIVATED PTT 61.1 SECONDS (25.2-36.5)
[2023-05-26 14:34] LABS: CHLORIDE 101 mmol/L (98-107); POTASSIUM 5.5 mmol/L (3.5-5.1); SODIUM 135 mmol/L (136-145)
[2023-05-26 14:36] LABS: CALCIUM 9.2 mg/dL (8.5-10.1)
[2023-05-26 14:37] LABS: ALBUMIN 4.5 g/dl (3.4-5.0); ANION GAP 13 mmol/L (4-13); BLOOD UREA NITROGEN 58.4 mg/dL (7-18); CO2 21 mmol/L (21-32); GLUCOSE,RANDOM 81 mg/dL (74-106); MAGNESIUM 2.2 mg/dL (1.8-2.4)
[2023-05-26 14:40] LABS: PHOSPHOROUS 5.2 mg/dL (2.5-4.9); SGOT/AST 45 U/L (15-37)
[2023-05-26 14:41] LABS: BILIRUBIN,TOTAL 1.5 mg/dL (0.2-1); TOT PROT 7.6 g/dl (6.4-8.2)
[2023-05-26 14:43] LABS: ALK PHOS 109 U/L (45-117); CREATININE 8.2 mg/dL (0.55-1.3); SGPT/ALT 29 U/L (13-61)
[2023-05-26] MEDS ORDERED: AZITHROMYCIN 250 MG TABLET PO ONE (15:56)
[2023-05-26] MEDS ORDERED: AZITHROMYCIN 500 MG TABLET ONE (16:06)
[2023-05-26 18:05] VITALS: BP 170/65; PULSE 80; TEMP 97.8
== END 2023-05-26 18:06 | disposition home or self-care (01) ==
LOC: JER 12:27
DX: R20.2 Paresthesia of skin (principal); R20.0 Anesthesia of skin; R53.1 Weakness; R06.02 Shortness of breath; R05.9 Cough, unspecified; Z20.822 Contact with and (suspected) exposure to COVID-19
CPT/HCPCS: 0241U-QW; 36415; 71045-TC-FY; 80053; 82962; 83735; 84100; 84484; 85025; 85610; 85730; 86850; 86900; 86901; 93005; 93010; 99285-25

== ENCOUNTER 2023-06-09 15:52 | Observation (INO) | payer OTHER ==
[2023-06-09 16:05] VITALS: BMI 28.9
[2023-06-09 17:56] LABS: BASO % 0.9 % (0-2.0); EOS % 10.6 % (0-4.5); HEMATOCRIT 35.3 % (35.4-49); HEMOGLOBIN 11.4 GM/dL (11.7-16.9); MCH 30.5 pg (25.7-33.7); MCHC 32.4 g/dl (32.0-35.9); MEAN PLT VOLUME 10.2 fl (7.5-11.1); MONO % 16.4 % (3.8-10.2); NEUT % 32.1 % (42.8-82.8); PLATELET COUNT 94 10^3/uL (134-434); RBC 3.75 M/mm3 (4.00-5.60); RDW 16.7 % (11.9-15.9); WHITE BLOOD COUNT 4.4 K/mm3 (4.0-10.0)
[2023-06-09] MEDS ORDERED: SODIUM CHLORIDE 250 ML IV PRN (17:59)
[2023-06-09 18:03] LABS: INR 1.19 (0.83-1.09); PROTHROMBIN TIME (PATIENT) 13.8 SEC (9.7-13.0)
[2023-06-09 18:05] LABS: ACTIVATED PTT 34.2 SECONDS (25.2-36.5)
[2023-06-09 18:11] LABS: CHLORIDE 110 mmol/L (98-107); SODIUM 140 mmol/L (136-145)
[2023-06-09 18:13] LABS: CALCIUM 8.6 mg/dL (8.5-10.1); CO2 19 mmol/L (21-32); GLUCOSE,RANDOM 108 mg/dL (74-106); MAGNESIUM 2.2 mg/dL (1.8-2.4)
[2023-06-09 18:15] LABS: PHOSPHOROUS 5.9 mg/dL (2.5-4.9); SGOT/AST 27 U/L (15-37); SGPT/ALT 28 U/L (13-61)
[2023-06-09 18:17] LABS: BILIRUBIN,TOTAL 0.7 mg/dL (0.2-1); TOT PROT 7.1 g/dl (6.4-8.2)
[2023-06-09 18:19] LABS: ALK PHOS 97 U/L (45-117)
[2023-06-09 18:36] LABS: ANION GAP 11 mmol/L (4-13); CREATININE 12.6 mg/dL (0.55-1.3); POTASSIUM 6.6 mmol/L (3.5-5.1)
[2023-06-09] MEDS ORDERED: LORATADINE 10 MG TABLET PO PRN (19:40)
[2023-06-09] MEDS ORDERED: HEPARIN NA (PORCINE) 5,000 UNITS/ML 1ML VIAL ONE (21:45)
[2023-06-09] MEDS: TACROLIMUS ANHYDROUS 1 MG CAPSULE PO SCH ×2 (21:57→22:22)
[2023-06-09] MEDS ORDERED: DOXAZOSIN MESYLATE 4 MG PO SCH (22:00)
[2023-06-09] MEDS: HEPARIN NA (PORCINE) 5,000 UNITS/ML 1ML VIAL SQ SCH (22:07)
[2023-06-10 02:08] LABS: CHLORIDE 105 mmol/L (98-107); POTASSIUM 4.2 mmol/L (3.5-5.1); SODIUM 141 mmol/L (136-145)
[2023-06-10 02:09] LABS: CALCIUM 8.7 mg/dL (8.5-10.1)
[2023-06-10 02:10] LABS: CO2 25 mmol/L (21-32); GLUCOSE,RANDOM 76 mg/dL (74-106)
[2023-06-10 02:11] LABS: ANION GAP 10 mmol/L (4-13)
[2023-06-10 02:29] LABS: CREATININE 8.6 mg/dL (0.55-1.3)
[2023-06-10] MEDS: CARVEDILOL 12.5 MG TABLET (FP) PO SCH ×3 (02:57→21:27)
[2023-06-10] MEDS: ALPRAZolam 0.25 MG TABLET PO PRN (03:00)
[2023-06-10] MEDS: hydrALAZINE HCL 25 MG TABLET (FP) PO SCH ×3 (06:13→21:27)
[2023-06-10] MEDS: HEPARIN NA (PORCINE) 5,000 UNITS/ML 1ML VIAL SQ SCH ×3 (06:14→21:27)
[2023-06-10] MEDS: TORSEMIDE 100 MG TABLET PO SCH ×2 (06:14→13:51)
[2023-06-10] MEDS: TACROLIMUS ANHYDROUS 1 MG CAPSULE PO SCH ×2 (06:32→21:31)
[2023-06-10 06:39] LABS: BASO % 0.9 % (0-2.0); EOS % 11.2 % (0-4.5); HEMATOCRIT 34.1 % (35.4-49); LYMPH % 46.5 % (8-40); MCH 30.2 pg (25.7-33.7); MCHC 32.2 g/dl (32.0-35.9); MEAN PLT VOLUME 8.8 fl (7.5-11.1); MONO % 17.3 % (3.8-10.2); NEUT % 24.1 % (42.8-82.8); PLATELET COUNT 71 10^3/uL (134-434); RBC 3.62 M/mm3 (4.00-5.60); RDW 16.2 % (11.9-15.9); WHITE BLOOD COUNT 3.8 K/mm3 (4.0-10.0)
[2023-06-10 06:59] LABS: CHLORIDE 104 mmol/L (98-107); POTASSIUM 4.1 mmol/L (3.5-5.1); SODIUM 138 mmol/L (136-145)
[2023-06-10 07:03] LABS: ANION GAP 8 mmol/L (4-13); BLOOD UREA NITROGEN 67.6 mg/dL (7-18); CALCIUM 8.9 mg/dL (8.5-10.1); CO2 25 mmol/L (21-32); GLUCOSE,RANDOM 111 mg/dL (74-106); MAGNESIUM 1.9 mg/dL (1.8-2.4)
[2023-06-10 07:07] LABS: PHOSPHOROUS 4.2 mg/dL (2.5-4.9); SGOT/AST 9 U/L (15-37); SGPT/ALT 25 U/L (13-61)
[2023-06-10 07:08] LABS: BILIRUBIN,TOTAL 0.9 mg/dL (0.2-1); TOT PROT 6.5 g/dl (6.4-8.2)
[2023-06-10 07:10] LABS: ALK PHOS 93 U/L (45-117)
[2023-06-10 08:12] LABS: CREATININE 9.3 mg/dL (0.55-1.3)
[2023-06-10] MEDS: ASPIRIN 81 MG CHEWABLE TABLETS PO SCH (09:06)
[2023-06-10] MEDS: predniSONE 5 MG TABLET (UD) PO SCH (09:06)
[2023-06-10] MEDS: amLODIPine BESYLATE 5 MG TABLET (FP) PO SCH (09:07)
[2023-06-10] MEDS: COLCHICINE 0.6 MG TAB PO SCH (09:14)
[2023-06-10] MEDS: ATORVASTATIN CA 20 MG TABLET (FP) PO SCH (09:15)
[2023-06-10] MEDS ORDERED: PATIENT'S OWN MEDICATION (NON-FORMULARY) (Colchicine [Colchicine] 0.6 MG Tablet) PO SCH (10:00)
[2023-06-10] MEDS: MYCOPHENOLATE MOFETIL 250 MG CAPSULE PO SCH ×2 (11:22→11:26)
[2023-06-10] MEDS: VITAMIN B COMP W-C 1 EA TABLET (NEPHRO-VITE) PO SCH (11:22)
[2023-06-10 13:51] VITALS: RESP 18
[2023-06-10] MEDS ORDERED: SODIUM CHLORIDE 250 ML IV PRN (16:08)
[2023-06-11] MEDS: ALPRAZolam 0.25 MG TABLET PO PRN (05:02)
[2023-06-11] MEDS: TORSEMIDE 100 MG TABLET PO SCH (05:03)
[2023-06-11] MEDS: HEPARIN NA (PORCINE) 5,000 UNITS/ML 1ML VIAL SQ SCH (05:04)
[2023-06-11] MEDS: hydrALAZINE HCL 25 MG TABLET (FP) PO SCH (05:07)
[2023-06-11] MEDS: TACROLIMUS ANHYDROUS 1 MG CAPSULE PO SCH (06:36)
[2023-06-11 07:29] LABS: HEMATOCRIT 34.1 % (35.4-49); HEMOGLOBIN 11.1 GM/dL (11.7-16.9); MCH 30.5 pg (25.7-33.7); MCHC 32.5 g/dl (32.0-35.9); MEAN CELL VOLUME 93.9 fl (80-96); MEAN PLT VOLUME 9.9 fl (7.5-11.1); PLATELET COUNT 76 10^3/uL (134-434); RBC 3.63 M/mm3 (4.00-5.60); RDW 15.5 % (11.9-15.9); WHITE BLOOD COUNT 4.4 K/mm3 (4.0-10.0)
[2023-06-11 07:46] LABS: CHLORIDE 106 mmol/L (98-107); POTASSIUM 4.7 mmol/L (3.5-5.1); SODIUM 138 mmol/L (136-145)
[2023-06-11 07:47] LABS: ANION GAP 9 mmol/L (4-13); CALCIUM 8.6 mg/dL (8.5-10.1); CO2 23 mmol/L (21-32)
[2023-06-11 07:48] LABS: BLOOD UREA NITROGEN 83.2 mg/dL (7-18); GLUCOSE,RANDOM 86 mg/dL (74-106)
[2023-06-11 07:51] LABS: PHOSPHOROUS 5.6 mg/dL (2.5-4.9)
[2023-06-11 07:58] LABS: CREATININE 11.4 mg/dL (0.55-1.3)
[2023-06-11 08:58] VITALS: TEMP 98.5
[2023-06-11 12:06] VITALS: PULSE 85
[2023-06-11 12:41] VITALS: BP 155/85
[2023-06-11] MEDS: COLCHICINE 0.6 MG TAB PO SCH (12:58)
[2023-06-11] MEDS: CARVEDILOL 12.5 MG TABLET (FP) PO SCH (12:58)
[2023-06-11] MEDS: VITAMIN B COMP W-C 1 EA TABLET (NEPHRO-VITE) PO SCH (12:58)
[2023-06-11] MEDS: amLODIPine BESYLATE 5 MG TABLET (FP) PO SCH (12:58)
[2023-06-11] MEDS: ASPIRIN 81 MG CHEWABLE TABLETS PO SCH (12:58)
[2023-06-11] MEDS: predniSONE 5 MG TABLET (UD) PO SCH (12:58)
[2023-06-11] MEDS: MYCOPHENOLATE MOFETIL 250 MG CAPSULE PO SCH (12:59)
[2023-06-11] MEDS: ATORVASTATIN CA 20 MG TABLET (FP) PO SCH (13:00)
== END 2023-06-11 14:23 | disposition home or self-care (01) ==
LOC: JER 15:52 → INTOOBSV 17:43 → JERBED 17:43 → J4W 06-10 02:04
PROVIDERS: ADMIT Internal Medicine; ATTEND Internal Medicine
DX: E87.70 Fluid overload, unspecified (principal); I25.10 Atherosclerotic heart disease of native coronary artery without angina pectoris; Z91.158 Patient's noncompliance with renal dialysis for other reason; I13.2 Hypertensive heart and chronic kidney disease with heart failure and with stage 5 chronic kidney disease, or end stage renal disease; I11.0 Hypertensive heart disease with heart failure; N18.6 End stage renal disease; I50.1 Left ventricular failure, unspecified; Z94.1 Heart transplant status; R77.8 Other specified abnormalities of plasma proteins; M10.9 Gout, unspecified; D64.9 Anemia, unspecified; E87.5 Hyperkalemia
CPT/HCPCS: 0241U-QW; 36415; 71045-TC-FY; 80048; 80053; 83036; 83735; 84100; 84484; 85025; 85027; 85610; 85730; 87045; 87046; 87324; 87340; 87425; 87449; 87798; 93005; 93010; 99285-25; G0378; J1644; J7517

== ENCOUNTER 2023-07-26 13:26 | Inpatient (IN) | payer OTHER ==
[2023-07-26] MEDS ORDERED: SODIUM CHLORIDE 250 ML IV PRN (14:42)
[2023-07-26 14:48] LABS: VENOUS BASE EXCESS -8.1 mmol/L (-2-2); VENOUS O2 SATURATION 87.4 % (70-80); VENOUS PCO2 41.9 mmHg (38-52); VENOUS PH 7.261 (7.310-7.410)
[2023-07-26 14:53] LABS: BASO % 0.9 % (0-2.0); EOS % 9.5 % (0-4.5); HEMATOCRIT 29.3 % (35.4-49); HEMOGLOBIN 9.3 GM/dL (11.7-16.9); LYMPH % 27.2 % (8-40); MCH 29.5 pg (25.7-33.7); MCHC 31.7 g/dl (32.0-35.9); MEAN PLT VOLUME 10.6 fl (7.5-11.1); MONO % 14.1 % (3.8-10.2); NEUT % 48.3 % (42.8-82.8); PLATELET COUNT 86 10^3/uL (134-434); RBC 3.15 M/mm3 (4.00-5.60); RDW 16.5 % (11.9-15.9); WHITE BLOOD COUNT 5.4 K/mm3 (4.0-10.0)
[2023-07-26 14:58] LABS: INR 1.11 (0.83-1.09); PROTHROMBIN TIME (PATIENT) 12.9 SEC (9.7-13.0)
[2023-07-26 15:01] LABS: ACTIVATED PTT 34.2 SECONDS (25.2-36.5)
[2023-07-26 15:13] LABS: CHLORIDE 107 mmol/L (98-107); SODIUM 141 mmol/L (136-145)
[2023-07-26 15:15] LABS: CALCIUM 8.9 mg/dL (8.5-10.1)
[2023-07-26 15:16] LABS: ALBUMIN 4.4 g/dl (3.4-5.0); CO2 20 mmol/L (21-32); GLUCOSE,RANDOM 119 mg/dL (74-106); MAGNESIUM 2.3 mg/dL (1.8-2.4)
[2023-07-26 15:19] LABS: SGOT/AST 10 U/L (15-37); SGPT/ALT 29 U/L (13-61)
[2023-07-26 15:20] LABS: BILIRUBIN,TOTAL 0.7 mg/dL (0.2-1)
[2023-07-26 15:21] LABS: ALK PHOS 119 U/L (45-117); ANION GAP 14 mmol/L (4-13); BLOOD UREA NITROGEN 143.5 mg/dL (7-18); CREATININE 14.2 mg/dL (0.55-1.3); POTASSIUM 6.4 mmol/L (3.5-5.1); TOT PROT 7.6 g/dl (6.4-8.2)
[2023-07-26] MEDS ORDERED: CALCIUM GLUCONATE 10% - 1,000 MG/10 ML VIAL IVPUSH ONE (15:33)
[2023-07-26] MEDS ORDERED: INSULIN REGULAR HUMAN 100 UNITS/ML *VIAL SQ ONE (15:35)
[2023-07-26] MEDS ORDERED: DEXTROSE 50%-WATER - 25 GM/50 ML VIAL IVPUSH ONE (15:36)
[2023-07-26] MEDS ORDERED: CALCIUM GLUCONATE 10% - 1,000 MG/10 ML VIAL ONE (16:23)
[2023-07-26] MEDS ORDERED: SODIUM ZIRCONIUM CYCLOSILICATE (LOKELMA) 10 GM PACKET ONE (16:23)
[2023-07-26] MEDS ORDERED: INSULIN REGULAR HUMAN 100 UNITS/ML *VIAL ONE (16:34)
[2023-07-26] MEDS ORDERED: DEXTROSE 50%-WATER 25 GM/50 ML DISP.SYRIN ONE (16:34)
[2023-07-26] MEDS: SODIUM ZIRCONIUM CYCLOSILICATE (LOKELMA) 5 GM PACKET PO SCH (16:46)
[2023-07-26 21:03] VITALS: BMI 28.4
[2023-07-26] MEDS: HEPARIN NA (PORCINE) 5,000 UNITS/ML 1ML VIAL SQ SCH (21:50)
[2023-07-26] MEDS: LABETALOL HCL 200 MG TABLET (FP) PO SCH (21:52)
[2023-07-26] MEDS: hydrALAZINE HCL 25 MG TABLET (FP) PO SCH (21:53)
[2023-07-26] MEDS: CARVEDILOL 25 MG TABLET (FP) PO SCH (21:53)
[2023-07-26] MEDS ORDERED: TACROLIMUS ANHYDROUS 1 MG CAPSULE PO SCH (22:00)
[2023-07-26] MEDS ORDERED: ATORVASTATIN CA 20 MG TABLET (FP) PO SCH (22:00)
[2023-07-26] MEDS ORDERED: DOXAZOSIN MESYLATE 4 MG PO SCH (22:00)
[2023-07-27] MEDS ORDERED: ACETAMINOPHEN 325 MG TABLET (FP) PO PRN ×2 (01:40→01:45)
[2023-07-27] MEDS ORDERED: ALPRAZolam 0.25 MG TABLET PO PRN (06:26)
[2023-07-27] MEDS: HEPARIN NA (PORCINE) 5,000 UNITS/ML 1ML VIAL SQ SCH ×2 (06:29→14:04)
[2023-07-27] MEDS: hydrALAZINE HCL 25 MG TABLET (FP) PO SCH (06:36)
[2023-07-27] MEDS ORDERED: TACROLIMUS ANHYDROUS 1 MG CAPSULE PO SCH (07:00)
[2023-07-27] MEDS: SEVELAMER CARBONATE 800 MG TAB (FP) PO SCH ×2 (09:55→12:03)
[2023-07-27] MEDS: CARVEDILOL 25 MG TABLET (FP) PO SCH (09:57)
[2023-07-27] MEDS: LABETALOL HCL 200 MG TABLET (FP) PO SCH (09:57)
[2023-07-27] MEDS: SODIUM ZIRCONIUM CYCLOSILICATE (LOKELMA) 5 GM PACKET PO SCH (09:58)
[2023-07-27] MEDS ORDERED: predniSONE 5 MG TABLET (UD) PO SCH (10:00)
[2023-07-27] MEDS ORDERED: MYCOPHENOLATE MOFETIL 250 MG CAPSULE PO SCH (10:00)
[2023-07-27] MEDS ORDERED: ASPIRIN 81 MG CHEWABLE TABLETS PO SCH (10:00)
[2023-07-27] MEDS ORDERED: amLODIPine BESYLATE 5 MG TABLET (FP) PO SCH (10:00)
[2023-07-27 10:11] LABS: HEMATOCRIT 27.8 % (35.4-49); HEMOGLOBIN 8.9 GM/dL (11.7-16.9); MCH 29.6 pg (25.7-33.7); MCHC 32.1 g/dl (32.0-35.9); MEAN PLT VOLUME 9.7 fl (7.5-11.1); PLATELET COUNT 87 10^3/uL (134-434); RBC 3.02 M/mm3 (4.00-5.60); RDW 16.5 % (11.9-15.9)
[2023-07-27 10:18] VITALS: TEMP 98.2
[2023-07-27 10:28] LABS: CHLORIDE 102 mmol/L (98-107); POTASSIUM 4.7 mmol/L (3.5-5.1); SODIUM 139 mmol/L (136-145)
[2023-07-27] MEDS ORDERED: TORSEMIDE 100 MG TABLET PO SCH ×2 (10:30→14:09)
[2023-07-27 10:32] LABS: ALBUMIN 3.9 g/dl (3.4-5.0); ANION GAP 13 mmol/L (4-13); CALCIUM 8.2 mg/dL (8.5-10.1); CO2 24 mmol/L (21-32); GLUCOSE,RANDOM 147 mg/dL (74-106); MAGNESIUM 1.9 mg/dL (1.8-2.4)
[2023-07-27 10:35] LABS: PHOSPHOROUS 5.5 mg/dL (2.5-4.9); SGPT/ALT 29 U/L (13-61)
[2023-07-27 10:36] LABS: SGOT/AST 9 U/L (15-37)
[2023-07-27 10:37] LABS: BILIRUBIN,TOTAL 0.7 mg/dL (0.2-1)
[2023-07-27 10:38] LABS: ALK PHOS 108 U/L (45-117)
[2023-07-27 10:49] LABS: BLOOD UREA NITROGEN 84.7 mg/dL (7-18); CREATININE 10.1 mg/dL (0.55-1.3)
[2023-07-27 14:10] VITALS: BP 147/87; PULSE 75; RESP 18
[2023-07-27] MEDS ORDERED: SODIUM CHLORIDE 250 ML IV PRN (17:23)
[2023-07-28] MEDS ORDERED: EPOETIN ALFA-EPBX 10,000 UNIT/ML VIAL SQ ONE (17:23)
== END 2023-07-27 17:20 | disposition home or self-care (01) | DRG 291 ==
LOC: JER 13:26 → JERBED 15:05 → J8W 20:19
PROVIDERS: ADMIT Internal Medicine; ATTEND Nurse Practitioner Acute Care
PROC: 5A1D70Z Performance of Urinary Filtration, Intermittent, Less than 6 Hours Per Day (ICD-10-PCS; principal; 2023-07-26)
DX: I13.2 Hypertensive heart and chronic kidney disease with heart failure and with stage 5 chronic kidney disease, or end stage renal disease (principal); N18.6 End stage renal disease; Z94.1 Heart transplant status; E27.1 Primary adrenocortical insufficiency; I50.42 Chronic combined systolic (congestive) and diastolic (congestive) heart failure; I42.0 Dilated cardiomyopathy; G47.30 Sleep apnea, unspecified; M79.7 Fibromyalgia; I25.10 Atherosclerotic heart disease of native coronary artery without angina pectoris; M10.9 Gout, unspecified; E87.5 Hyperkalemia; D63.1 Anemia in chronic kidney disease; I48.91 Unspecified atrial fibrillation; I27.20 Pulmonary hypertension, unspecified; K59.00 Constipation, unspecified; Z87.11 Personal history of peptic ulcer disease; Z91.148 Patient's other noncompliance with medication regimen for other reason; Z99.2 Dependence on renal dialysis
CPT/HCPCS: 36415; 80053; 80197; 82803; 83735; 84100; 84484; 85025; 85027; 85610; 85730; 86704; 86803; 86850; 86900; 86901; 87340; 87517; 93005; 93010; 93306-TC; 93970-TC; 99285-25; J1644; J7517

== ENCOUNTER 2023-11-03 17:55 | Emergency (ER) | payer OTHER ==
[2023-11-03 18:27] VITALS: BP 159/98; PULSE 78; RESP 22; BMI 27.6
[2023-11-03 18:43] VITALS: TEMP 98.1
[2023-11-03 19:05] LABS: BASO % 0.8 % (0-2.0); EOS % 6.3 % (0-4.5); HEMATOCRIT 28.2 % (35.4-49); LYMPH % 21.4 % (8-40); MCH 32.2 pg (25.7-33.7); MCHC 32.1 g/dl (32.0-35.9); MEAN CELL VOLUME 100.5 fl (80-96); MEAN PLT VOLUME 9.9 fl (7.5-11.1); NEUT % 58.5 % (42.8-82.8); PLATELET COUNT 111 10^3/uL (134-434); RBC 2.81 M/mm3 (4.00-5.60); RDW 16.9 % (11.9-15.9); WHITE BLOOD COUNT 4.9 K/mm3 (4.0-10.0)
[2023-11-03 19:12] LABS: INR 1.17 (0.83-1.09); PROTHROMBIN TIME (PATIENT) 13.2 SEC (9.7-13.0)
[2023-11-03 19:15] LABS: ACTIVATED PTT 35.7 SECONDS (25.2-36.5)
[2023-11-03] MEDS ORDERED: ACETAMINOPHEN INJECTION 100 ML IVPB ONE (19:20)
[2023-11-03 19:25] LABS: CHLORIDE 105 mmol/L (98-107); POTASSIUM 4.9 mmol/L (3.5-5.1); SODIUM 136 mmol/L (136-145)
[2023-11-03] MEDS: ACETAMINOPHEN 1000 MG/100 ML BAG IVPB ONE (19:26)
[2023-11-03 19:27] LABS: CALCIUM 9.4 mg/dL (8.5-10.1)
[2023-11-03 19:28] LABS: ALBUMIN 3.7 g/dl (3.4-5.0); ANION GAP 8 mmol/L (4-13); BLOOD UREA NITROGEN 83.8 mg/dL (7-18); CO2 24 mmol/L (21-32); GLUCOSE,RANDOM 129 mg/dL (74-106); MAGNESIUM 2.1 mg/dL (1.8-2.4)
[2023-11-03 19:30] LABS: SGPT/ALT 10 U/L (13-61)
[2023-11-03 19:31] LABS: PHOSPHOROUS 6.8 mg/dL (2.5-4.9); SGOT/AST 28 U/L (15-37)
[2023-11-03 19:32] LABS: BILIRUBIN,TOTAL 0.6 mg/dL (0.2-1); CHOLESTEROL 182 mg/dL (50-200); TOT PROT 7.3 g/dl (6.4-8.2)
[2023-11-03 19:33] LABS: ALK PHOS 155 U/L (45-117); LDL CHOLESTEROL (ONLY SJRH) 101 mg/dL (5-100)
[2023-11-03 19:35] LABS: HDL CHOLESTEROL 65 mg/dL (40-60)
[2023-11-03 20:00] LABS: CREATININE 9.8 mg/dL (0.55-1.3)
== END 2023-11-03 23:13 | disposition left against medical advice (07) ==
LOC: JER 17:55
PROC: 3E030NZ Introduction of Analgesics, Hypnotics, Sedatives into Peripheral Vein, Open Approach (ICD-10-PCS; principal; 2023-11-03)
DX: R55 Syncope and collapse (principal); E87.70 Fluid overload, unspecified; I12.0 Hypertensive chronic kidney disease with stage 5 chronic kidney disease or end stage renal disease; N18.6 End stage renal disease; Z99.2 Dependence on renal dialysis; R22.32 Localized swelling, mass and lump, left upper limb
CPT/HCPCS: 36415; 70450-TC; 71045-TC-FY; 73110-TC-LT-FY; 73130-TC-LT-FY; 80053; 80061; 83036; 83735; 84100; 84484; 85025; 85610; 85730; 93005; 93010; 93971; 99285-25; J0131

== ENCOUNTER 2024-04-26 16:40 | Inpatient (IN) | payer OTHER ==
[2024-04-26] MEDS ORDERED: ALBUTEROL SO4 2.5/IPRATROPIUM 0.5 INH SOL 3 ML VIAL.NEB. NEB ONE (19:32)
[2024-04-26] MEDS: ALBUTEROL SO4 2.5/IPRATROPIUM 0.5 INH SOL 3 ML VIAL.NEB. NEB SCH (19:36)
[2024-04-26 19:46] LABS: HEMATOCRIT 33.7 % (35.4-49); HEMOGLOBIN 10.8 GM/dL (11.7-16.9); MCH 31.1 pg (25.7-33.7); MEAN CELL VOLUME 97.3 fl (80-96); MEAN PLT VOLUME 9.6 fl (7.5-11.1); PLATELET COUNT 100 10^3/uL (134-434); RBC 3.46 M/mm3 (4.00-5.60); RDW 18.2 % (11.9-15.9); WHITE BLOOD COUNT 4.5 K/mm3 (4.0-10.0)
[2024-04-26 19:55] LABS: INR 1.1 (0.83-1.09); PROTHROMBIN TIME (PATIENT) 12.4 SEC (9.7-13.0)
[2024-04-26 19:58] LABS: ACTIVATED PTT 38.6 SECONDS (25.2-36.5)
[2024-04-26 20:06] LABS: CHLORIDE 104 mmol/L (98-107); POTASSIUM 4.1 mmol/L (3.5-5.1); SODIUM 137 mmol/L (136-145)
[2024-04-26 20:07] LABS: CALCIUM 8.3 mg/dL (8.5-10.1)
[2024-04-26 20:09] LABS: ALBUMIN 4.3 g/dl (3.4-5.0); ANION GAP 9 mmol/L (4-13); BLOOD UREA NITROGEN 53.7 mg/dL (7-18); CO2 24 mmol/L (21-32); GLUCOSE,RANDOM 84 mg/dL (74-106); MAGNESIUM 1.9 mg/dL (1.8-2.4)
[2024-04-26 20:11] LABS: PHOSPHOROUS 4.3 mg/dL (2.5-4.9); SGOT/AST 21 U/L (15-37); SGPT/ALT 37 U/L (13-61)
[2024-04-26 20:12] LABS: BILIRUBIN,TOTAL 0.7 mg/dL (0.2-1); TOT PROT 7.5 g/dl (6.4-8.2)
[2024-04-26 20:14] LABS: ALK PHOS 134 U/L (45-117)
[2024-04-26 20:15] LABS: CREATININE 7.8 mg/dL (0.55-1.3)
[2024-04-26] MEDS ORDERED: NITROGLYCERIN SUBLINGUAL 1/150 0.4 MG TAB ONE (20:23)
[2024-04-26] MEDS: NITROGLYCERIN SUBLINGUAL 1/150 0.4 MG TAB SL ONE (20:25)
[2024-04-26 20:29] LABS: N-TERMINAL BNP 90988.4 pg/ml (5-125)
[2024-04-26] MEDS ORDERED: AZTREONAM 1 GM VIAL (RESTRICTED TO ID) ONE (22:01)
[2024-04-26] MEDS ORDERED: LINEZOLID 600 MG PREMIX BAG 600 MG/300 ML BAG IVPB ONE (22:01)
[2024-04-26] MEDS: AZTREONAM 1 GM in DEXTROSE 5%-WATER - 50 ML IVPB ONE (22:15)
[2024-04-26] MEDS: LINEZOLID 600 MG PREMIX BAG 600 MG in PREMIX 300 IVPB ONE (22:53)
[2024-04-27] MEDS: ACETAMINOPHEN 1000 MG/100 ML BAG IVPB PRN (04:24)
[2024-04-27] MEDS: HEPARIN NA (PORCINE) 5,000 UNITS/ML 1ML VIAL SQ SCH (06:28)
[2024-04-27 06:30] LABS: HEMATOCRIT 33.5 % (35.4-49); HEMOGLOBIN 10.6 GM/dL (11.7-16.9); MCH 31.4 pg (25.7-33.7); MCHC 31.7 g/dl (32.0-35.9); MEAN CELL VOLUME 98.8 fl (80-96); MEAN PLT VOLUME 9.4 fl (7.5-11.1); PLATELET COUNT 100 10^3/uL (134-434); RBC 3.39 M/mm3 (4.00-5.60); RDW 17.7 % (11.9-15.9); WHITE BLOOD COUNT 4.4 K/mm3 (4.0-10.0)
[2024-04-27 06:48] LABS: CHLORIDE 104 mmol/L (98-107); POTASSIUM 4.7 mmol/L (3.5-5.1); SODIUM 136 mmol/L (136-145)
[2024-04-27 06:55] LABS: ALBUMIN 3.8 g/dl (3.4-5.0); CALCIUM 8.1 mg/dL (8.5-10.1)
[2024-04-27 06:57] LABS: ANION GAP 10 mmol/L (4-13); BLOOD UREA NITROGEN 59.8 mg/dL (7-18); CO2 22 mmol/L (21-32); GLUCOSE,RANDOM 84 mg/dL (74-106); MAGNESIUM 1.9 mg/dL (1.8-2.4)
[2024-04-27 06:59] LABS: PHOSPHOROUS 5.8 mg/dL (2.5-4.9); SGOT/AST 17 U/L (15-37); SGPT/ALT 30 U/L (13-61)
[2024-04-27 07:00] LABS: BILIRUBIN,TOTAL 0.6 mg/dL (0.2-1); TOT PROT 6.6 g/dl (6.4-8.2)
[2024-04-27 07:01] LABS: ALK PHOS 116 U/L (45-117)
[2024-04-27 07:08] LABS: CREATININE 8.7 mg/dL (0.55-1.3)
[2024-04-27 09:31] LABS: ANISOCYTOSIS 0; HELMET CELLS 0; HOWELL-JOLLY BODIES 0; MACROCYTOSIS 0; OVALOCYTE 0; ROULEAU 0; SICKELED CELLS 0; TARGET CELLS 0; TEAR DROP CELLS 0; TOXIC GRANULATION 0
[2024-04-27] MEDS: PANTOPRAZOLE SODIUM 40 MG VIAL IVPUSH SCH (09:44)
[2024-04-27] MEDS: predniSONE 5 MG TABLET (UD) PO SCH (09:44)
[2024-04-27] MEDS: MUPIROCIN 2% TOPICAL OINTMENT FOR DECOLONIZATION NS SCH (09:44)
[2024-04-27] MEDS: SEVELAMER CARBONATE 800 MG TAB (FP) PO SCH (09:44)
[2024-04-27] MEDS: TACROLIMUS ANHYDROUS 1 MG CAPSULE PO SCH ×2 (12:23→21:41)
[2024-04-27] MEDS ORDERED: SODIUM CHLORIDE 250 ML IV PRN (12:50)
[2024-04-27] MEDS: HEPARIN NA (PORCINE) 5,000 UNITS/ML 1ML VIAL IVPUSH ONE (15:26)
[2024-04-27] MEDS: ALPRAZolam 0.25 MG TABLET PO PRN (17:00)
[2024-04-27] MEDS: CHLORHEXIDINE GLUCONATE 4% CLEANSER FOR DECOLONIZATION TP SCH (21:42)
[2024-04-28 11:25] LABS: HEMATOCRIT 34.6 % (35.4-49); HEMOGLOBIN 11.1 GM/dL (11.7-16.9); MCH 31.4 pg (25.7-33.7); MCHC 32.2 g/dl (32.0-35.9); MEAN CELL VOLUME 97.4 fl (80-96); MEAN PLT VOLUME 9.5 fl (7.5-11.1); PLATELET COUNT 101 10^3/uL (134-434); RBC 3.55 M/mm3 (4.00-5.60); RDW 17.8 % (11.9-15.9)
[2024-04-28 11:40] LABS: CHLORIDE 101 mmol/L (98-107); POTASSIUM 4.2 mmol/L (3.5-5.1); SODIUM 137 mmol/L (136-145)
[2024-04-28 11:43] LABS: ANION GAP 8 mmol/L (4-13); CALCIUM 7.7 mg/dL (8.5-10.1); CO2 28 mmol/L (21-32); GLUCOSE,RANDOM 134 mg/dL (74-106)
[2024-04-28 11:46] LABS: SGOT/AST 17 U/L (15-37); SGPT/ALT 31 U/L (13-61)
[2024-04-28 11:48] LABS: BILIRUBIN,TOTAL 0.5 mg/dL (0.2-1); CREATININE 7.7 mg/dL (0.55-1.3); TOT PROT 7.3 g/dl (6.4-8.2)
[2024-04-28 11:49] LABS: ALK PHOS 127 U/L (45-117)
[2024-04-28 12:21] LABS: ANISOCYTOSIS 0; HELMET CELLS 0; HOWELL-JOLLY BODIES 0; MACROCYTOSIS 0; OVALOCYTE 0; ROULEAU 0; SICKELED CELLS 0; TARGET CELLS 0; TEAR DROP CELLS 0; TOXIC GRANULATION 0
[2024-04-28 13:54] VITALS: BMI 25.1
[2024-04-28] MEDS ORDERED: SODIUM CHLORIDE 250 ML IV PRN (15:37)
[2024-04-28] MEDS: ATOVAQUONE 750 MG/5 ML (UNIT-DOSE PACKAGING) PO SCH (18:13)
[2024-04-28] MEDS: LABETALOL HCL 200 MG TABLET (FP) PO SCH (21:39)
[2024-04-28] MEDS: MYCOPHENOLATE MOFETIL 250 MG CAPSULE PO SCH (21:40)
[2024-04-28] MEDS: DEXMEDETOMIDINE PREMIX 400 MCG/100 ML BAG IVPB SCH (23:49)
[2024-04-29 07:17] LABS: HEMATOCRIT 38.9 % (35.4-49); HEMOGLOBIN 12.3 GM/dL (11.7-16.9); MCH 31.3 pg (25.7-33.7); MCHC 31.6 g/dl (32.0-35.9); MEAN CELL VOLUME 99.1 fl (80-96); MEAN PLT VOLUME 9.6 fl (7.5-11.1); PLATELET COUNT 97 10^3/uL (134-434); RBC 3.93 M/mm3 (4.00-5.60); RDW 17.4 % (11.9-15.9); WHITE BLOOD COUNT 5.4 K/mm3 (4.0-10.0)
[2024-04-29 07:42] LABS: MAGNESIUM 2.2 mg/dL (1.8-2.4)
[2024-04-29 09:10] LABS: ANISOCYTOSIS 0; HELMET CELLS 0; HOWELL-JOLLY BODIES 0; MACROCYTOSIS 0; OVALOCYTE 0; ROULEAU 0; SICKELED CELLS 0; TARGET CELLS 0; TEAR DROP CELLS 0; TOXIC GRANULATION 0
[2024-04-29 14:36] LABS: BF WBC & OTHER NUCLEATED CELLS 670 /mm3
[2024-04-29 15:10] LABS: BODY FLUID MACROPHAGES 37 %; BODY FLUID MESOTHELIAL 11 %; BODY FLUID MONOCYTE 29 %
[2024-04-30 00:31] VITALS: BP 120/61; PULSE 84; RESP 18; TEMP 98.6
[2024-05-01 14:11] LABS: BODY FLUID ALBUMIN 3.4 g/dL (Not Estab.)
== END 2024-04-30 00:50 | disposition short-term general hospital (02) | DRG 189 ==
LOC: JER 16:40 → JERBED 21:38 → JICU 04-27 00:11
PROVIDERS: ADMIT Internal Medicine Pulmonary Disease; ATTEND Internal Medicine Pulmonary Disease
PROC: 5A1D70Z Performance of Urinary Filtration, Intermittent, Less than 6 Hours Per Day (ICD-10-PCS; principal; 2024-04-27)
DX: J96.01 Acute respiratory failure with hypoxia (principal); N18.6 End stage renal disease; I13.2 Hypertensive heart and chronic kidney disease with heart failure and with stage 5 chronic kidney disease, or end stage renal disease; I50.22 Chronic systolic (congestive) heart failure; Z94.1 Heart transplant status; J90 Pleural effusion, not elsewhere classified; G47.33 Obstructive sleep apnea (adult) (pediatric); I25.10 Atherosclerotic heart disease of native coronary artery without angina pectoris; I25.5 Ischemic cardiomyopathy; Z99.2 Dependence on renal dialysis; D69.6 Thrombocytopenia, unspecified; M10.9 Gout, unspecified; D64.9 Anemia, unspecified; E87.5 Hyperkalemia
CPT/HCPCS: 0241U-QW; 36415; 71045-TC-FY; 71250-TC; 76604; 76937; 76942; 80053; 80197; 82042; 82150; 82465; 82945; 82962; 83605; 83615; 83735; 83880; 83986; 84100; 84157; 84478; 84484; 85025; 85610; 85730; 86803; 87070; 87075; 87081; 87102; 87116; 87205; 87206; 87210; 87340; 87481; 88108; 88305-TC; 93005; 93010; 93306-TC; 93308; 94660; 99285-25; J0131; J1644; J7517

== ENCOUNTER 2024-06-19 03:43 | Day surgery (SDC) | payer OTHER ==
[2024-06-18 13:58] VITALS: BMI 25.6
[2024-06-19] MEDS ORDERED: PROPOFOL 40 ML ONE (07:16)
[2024-06-19] MEDS ORDERED: MIDAZOLAM HCL 2 MG/2 ML SINGLE DOSE VIAL ONE (07:17)
[2024-06-19] MEDS ORDERED: ACETAMINOPHEN INJECTION 100 ML ONE (07:22)
[2024-06-19] MEDS ORDERED: ROPIVACAINE HCL 0.5% 30ML VIAL ONE (07:22)
[2024-06-19] MEDS ORDERED: ONDANSETRON 4 MG/2 ML VIAL IVPUSH PRN ×2 (08:14→11:03)
[2024-06-19] MEDS ORDERED: oxyCODONE HCL 5 MG TABLET PO PRN (08:14)
[2024-06-19] MEDS ORDERED: LACTATED RINGERS SOLUTION 1,000 ML IV SCH (08:15)
[2024-06-19 08:18] LABS: INR 1.14 (0.83-1.09); PROTHROMBIN TIME (PATIENT) 12.8 SEC (9.7-13.0)
[2024-06-19] MEDS ORDERED: HEPARIN NA (PORCINE) 5,000 UNITS/ML 1ML VIAL ONE (08:21)
[2024-06-19] MEDS ORDERED: LIDOCAINE HCL 1%, 10 MG/ML (20ML VIAL) ONE (08:21)
[2024-06-19] MEDS ORDERED: PROPOFOL 20 ML ONE (09:11)
[2024-06-19] MEDS: ceFAZolin SODIUM 1 GM VIAL IVPB ONE ×2 (09:15→09:20)
[2024-06-19] MEDS: LIDOCAINE HCL 1%, 10 MG/ML (50 mL VIAL) INF ONE ×2 (09:22)
[2024-06-19] MEDS: LIDOCAINE HCL 1%, 10 MG/ML (20ML VIAL) NR ONE (09:22)
[2024-06-19] MEDS: ALBUTEROL SO4 0.083% IH SOL 2.5 MG/3 ML VIAL.NEB. NEB ONE (13:11)
[2024-06-19] MEDS ORDERED: ALBUTEROL SO4 0.083% IH SOL 2.5 MG/3 ML VIAL.NEB. NEB ONE (13:11)
[2024-06-19 13:44] VITALS: RESP 16
[2024-06-19 15:01] VITALS: BP 123/67; PULSE 85
[2024-06-19 15:06] VITALS: TEMP 97.6
== END 2024-06-19 15:37 | disposition home or self-care (01) ==
LOC: JASU-SURG 03:43
PROVIDERS: ATTEND Surgery
PROC: 057C0ZZ Dilation of Left Basilic Vein, Open Approach (ICD-10-PCS; principal; 2024-06-19 09:00)
DX: I13.11 Hypertensive heart and chronic kidney disease without heart failure, with stage 5 chronic kidney disease, or end stage renal disease (principal); N18.6 End stage renal disease; Z99.2 Dependence on renal dialysis
CPT/HCPCS: 36415; 82962; 84132; 85610; 94760; J0131; J1644

== ENCOUNTER 2024-06-19 23:43 | Observation (INO) | payer OTHER ==
[2024-06-20] MEDS ORDERED: FENTANYL CITRATE/PF 50 MCG/ML VIAL ONE ×2 (00:29→01:01)
[2024-06-20 00:37] LABS: BASO % 0.8 % (0-2.0); EOS % 3.1 % (0-4.5); HEMATOCRIT 28.2 % (35.4-49); HEMOGLOBIN 9.1 GM/dL (11.7-16.9); LYMPH % 19.9 % (8-40); MCH 31.2 pg (25.7-33.7); MCHC 32.3 g/dl (32.0-35.9); MEAN CELL VOLUME 96.7 fl (80-96); MEAN PLT VOLUME 8.6 fl (7.5-11.1); MONO % 17.8 % (3.8-10.2); NEUT % 58.4 % (42.8-82.8); PLATELET COUNT 121 10^3/uL (134-434); RBC 2.92 M/mm3 (4.00-5.60); WHITE BLOOD COUNT 7.8 K/mm3 (4.0-10.0)
[2024-06-20 01:04] LABS: CHLORIDE 104 mmol/L (98-107); POTASSIUM 4.2 mmol/L (3.5-5.1); SODIUM 138 mmol/L (136-145)
[2024-06-20 01:06] LABS: CALCIUM 8.3 mg/dL (8.5-10.1)
[2024-06-20 01:07] LABS: ALBUMIN 3.8 g/dl (3.4-5.0); ANION GAP 11 mmol/L (4-13); BLOOD UREA NITROGEN 64.3 mg/dL (7-18); CO2 23 mmol/L (21-32); GLUCOSE,RANDOM 142 mg/dL (74-106)
[2024-06-20 01:10] LABS: SGOT/AST 13 U/L (15-37); SGPT/ALT 25 U/L (13-61)
[2024-06-20 01:11] LABS: BILIRUBIN,TOTAL 0.6 mg/dL (0.2-1); TOT PROT 6.8 g/dl (6.4-8.2)
[2024-06-20 01:13] LABS: ALK PHOS 122 U/L (45-117)
[2024-06-20 01:16] LABS: INR 1.14 (0.83-1.09); PROTHROMBIN TIME (PATIENT) 12.8 SEC (9.7-13.0)
[2024-06-20 01:18] LABS: ACTIVATED PTT 33.9 SECONDS (25.2-36.5)
[2024-06-20 01:27] LABS: CREATININE 9.5 mg/dL (0.55-1.3)
[2024-06-20] MEDS ORDERED: SUCCINYLCHOLINE CHLORIDE 200 MG/10 ML SYRINGE ONE (01:51)
[2024-06-20] MEDS ORDERED: LIDOCAINE HCL 1%, 10 MG/ML (20ML VIAL) ONE (01:53)
[2024-06-20] MEDS ORDERED: HEPARIN NA (PORCINE) 5,000 UNITS/ML 1ML VIAL ONE (01:53)
[2024-06-20] MEDS ORDERED: PROPOFOL 20 ML ONE ×2 (02:25→03:25)
[2024-06-20] MEDS ORDERED: MIDAZOLAM HCL 2 MG/2 ML SINGLE DOSE VIAL ONE (02:25)
[2024-06-20] MEDS ORDERED: ETOMIDATE 20 MG/10 ML VIAL IVPUSH ONE (02:26)
[2024-06-20] MEDS: ceFAZolin SODIUM 1 GM VIAL IVPB ONE (02:45)
[2024-06-20] MEDS ORDERED: ROCURONIUM BROMIDE 50 MG/5 ML SYRINGE ONE (03:02)
[2024-06-20] MEDS ORDERED: SUGAMMADEX SODIUM 200 MG/2 ML VIAL ONE ×2 (03:21→03:34)
[2024-06-20] MEDS ORDERED: FENTANYL CITRATE/PF 50 MCG/ML VIAL IVPUSH PRN (03:50)
[2024-06-20] MEDS ORDERED: MORPHINE SULFATE 2 MG/ML SYRINGE IVPUSH PRN (05:07)
[2024-06-20 09:46] LABS: BASO % 0.1 % (0-2.0); EOS % 0.2 % (0-4.5); HEMATOCRIT 27.3 % (35.4-49); HEMOGLOBIN 8.8 GM/dL (11.7-16.9); LYMPH % 6.9 % (8-40); MCH 31.3 pg (25.7-33.7); MCHC 32.3 g/dl (32.0-35.9); MEAN CELL VOLUME 96.9 fl (80-96); MEAN PLT VOLUME 9.6 fl (7.5-11.1); MONO % 9.4 % (3.8-10.2); NEUT % 83.4 % (42.8-82.8); PLATELET COUNT 115 10^3/uL (134-434); RBC 2.82 M/mm3 (4.00-5.60); RDW 15.5 % (11.9-15.9); WHITE BLOOD COUNT 9.1 K/mm3 (4.0-10.0)
[2024-06-20] MEDS: SEVELAMER CARBONATE 800 MG TAB (FP) PO SCH (09:47)
[2024-06-20] MEDS: TACROLIMUS ANHYDROUS 1 MG CAPSULE PO SCH ×2 (09:47→21:41)
[2024-06-20] MEDS: predniSONE 5 MG TABLET (UD) PO SCH (09:47)
[2024-06-20] MEDS: MYCOPHENOLATE MOFETIL 500 MG TABLET PO SCH (09:47)
[2024-06-20] MEDS ORDERED: MYCOPHENOLATE MOFETIL 250 MG CAPSULE PO SCH ×2 (10:00)
[2024-06-20] MEDS ORDERED: TACROLIMUS ANHYDROUS 1 MG CAPSULE PO SCH ×2 (10:00)
[2024-06-20 10:15] LABS: CHLORIDE 105 mmol/L (98-107); POTASSIUM 4.7 mmol/L (3.5-5.1); SODIUM 137 mmol/L (136-145)
[2024-06-20 10:33] LABS: ALBUMIN 3.7 g/dl (3.4-5.0); ANION GAP 11 mmol/L (4-13); CALCIUM 8.2 mg/dL (8.5-10.1); CO2 21 mmol/L (21-32); GLUCOSE,RANDOM 150 mg/dL (74-106); MAGNESIUM 2.1 mg/dL (1.8-2.4)
[2024-06-20 10:36] LABS: ALK PHOS 112 U/L (45-117); SGOT/AST 11 U/L (15-37); SGPT/ALT 21 U/L (13-61)
[2024-06-20 10:37] LABS: BILIRUBIN,TOTAL 0.5 mg/dL (0.2-1); PHOSPHOROUS 6.1 mg/dL (2.5-4.9); TOT PROT 6.7 g/dl (6.4-8.2)
[2024-06-20 11:31] VITALS: BMI 24.0
[2024-06-20] MEDS ORDERED: SODIUM CHLORIDE 250 ML IV PRN (12:49)
[2024-06-20] MEDS: EPOETIN ALFA-EPBX 10,000 UNIT/ML VIAL IVPUSH ONE (16:00)
[2024-06-20] MEDS: ATORVASTATIN CA 20 MG TABLET (FP) PO SCH (21:48)
[2024-06-21] MEDS: ACETAMINOPHEN 1000 MG/100 ML BAG IVPB PRN ×2 (04:40→18:42)
[2024-06-21] MEDS: ALBUMIN HUMAN 25% 12.5 GM/50 ML VIAL IV SCH (07:43)
[2024-06-21 10:58] LABS: HEMATOCRIT 27.9 % (35.4-49); HEMOGLOBIN 9.3 GM/dL (11.7-16.9); MCH 31.6 pg (25.7-33.7); MCHC 33.3 g/dl (32.0-35.9); MEAN CELL VOLUME 94.9 fl (80-96); MEAN PLT VOLUME 9.7 fl (7.5-11.1); PLATELET COUNT 128 10^3/uL (134-434); RBC 2.93 M/mm3 (4.00-5.60); RDW 16.8 % (11.9-15.9); WHITE BLOOD COUNT 9.8 K/mm3 (4.0-10.0)
[2024-06-21 11:12] LABS: POTASSIUM 3.7 mmol/L (3.5-5.1)
[2024-06-21] MEDS: SENNOSIDES 8.6MG TABLET (FP) PO ONE (11:18)
[2024-06-21 11:37] LABS: ALBUMIN 3.8 g/dl (3.4-5.0); CALCIUM 8.4 mg/dL (8.5-10.1)
[2024-06-21 11:38] LABS: MAGNESIUM 1.7 mg/dL (1.8-2.4)
[2024-06-21 11:40] LABS: CREATININE 7.2 mg/dL (0.55-1.3)
[2024-06-21 11:42] LABS: BILIRUBIN,TOTAL 0.6 mg/dL (0.2-1); TOT PROT 7.3 g/dl (6.4-8.2)
[2024-06-21 11:45] LABS: BLOOD UREA NITROGEN 39.6 mg/dL (7-18)
[2024-06-21] MEDS: CEFAZOLIN 3 GM in DEXTROSE 5%-WATER - 100 ML IVPB ONE (12:37)
[2024-06-21] MEDS: CEFAZOLIN 1 GM/D5W 1 GM/50 ML BAG IVPB SCH (14:41)
[2024-06-21] MEDS: CEFAZOLIN 1 GM/D5W 1 GM/50 ML BAG IVPB ONE (14:57)
[2024-06-21] MEDS: ALPRAZolam 0.25 MG TABLET PO PRN (22:15)
[2024-06-22 10:21] LABS: BASO % 0.5 % (0-2.0); EOS % 5.3 % (0-4.5); HEMATOCRIT 26.7 % (35.4-49); HEMOGLOBIN 8.8 GM/dL (11.7-16.9); LYMPH % 23.2 % (8-40); MCH 31.4 pg (25.7-33.7); MCHC 32.9 g/dl (32.0-35.9); MEAN CELL VOLUME 95.5 fl (80-96); MEAN PLT VOLUME 9.4 fl (7.5-11.1); MONO % 18.9 % (3.8-10.2); NEUT % 52.1 % (42.8-82.8); PLATELET COUNT 122 10^3/uL (134-434); RBC 2.79 M/mm3 (4.00-5.60); RDW 16.4 % (11.9-15.9); WHITE BLOOD COUNT 7.6 K/mm3 (4.0-10.0)
[2024-06-22 10:37] LABS: CHLORIDE 96 mmol/L (98-107); POTASSIUM 3.9 mmol/L (3.5-5.1); SODIUM 137 mmol/L (136-145)
[2024-06-22 10:40] LABS: CALCIUM 8.9 mg/dL (8.5-10.1)
[2024-06-22 10:41] LABS: ALBUMIN 3.9 g/dl (3.4-5.0); ANION GAP 13 mmol/L (4-13); BLOOD UREA NITROGEN 53.2 mg/dL (7-18); CO2 27 mmol/L (21-32); GLUCOSE,RANDOM 97 mg/dL (74-106); MAGNESIUM 1.9 mg/dL (1.8-2.4)
[2024-06-22 10:45] LABS: BILIRUBIN,TOTAL 0.6 mg/dL (0.2-1); SGOT/AST 12 U/L (15-37); SGPT/ALT 12 U/L (13-61); TOT PROT 7.4 g/dl (6.4-8.2)
[2024-06-22 10:46] LABS: CREATININE 9.2 mg/dL (0.55-1.3)
[2024-06-22 10:47] LABS: ALK PHOS 109 U/L (45-117)
[2024-06-23] MEDS ORDERED: SODIUM PHOSPHATE/NA BIPHOS 133 ML ENEMA RC PRN (03:43)
[2024-06-23] MEDS ORDERED: SODIUM CHLORIDE 250 ML IV PRN (10:00)
[2024-06-23] MEDS: EPOETIN ALFA-EPBX 10,000 UNIT/ML VIAL IVPUSH ONE (11:01)
[2024-06-23 11:24] LABS: BASO % 0.8 % (0-2.0); EOS % 5.5 % (0-4.5); HEMATOCRIT 26.3 % (35.4-49); HEMOGLOBIN 8.8 GM/dL (11.7-16.9); LYMPH % 27.7 % (8-40); MCH 31.5 pg (25.7-33.7); MCHC 33.4 g/dl (32.0-35.9); MEAN CELL VOLUME 94.3 fl (80-96); MEAN PLT VOLUME 9.7 fl (7.5-11.1); MONO % 16.4 % (3.8-10.2); NEUT % 49.6 % (42.8-82.8); PLATELET COUNT 136 10^3/uL (134-434); RBC 2.79 M/mm3 (4.00-5.60); WHITE BLOOD COUNT 6.2 K/mm3 (4.0-10.0)
[2024-06-23 11:53] LABS: CHLORIDE 99 mmol/L (98-107); POTASSIUM 4.1 mmol/L (3.5-5.1); SODIUM 136 mmol/L (136-145)
[2024-06-23 11:58] LABS: ALBUMIN 3.8 g/dl (3.4-5.0); ANION GAP 15 mmol/L (4-13); CALCIUM 9.1 mg/dL (8.5-10.1); CO2 23 mmol/L (21-32); GLUCOSE,RANDOM 91 mg/dL (74-106); MAGNESIUM 2.2 mg/dL (1.8-2.4)
[2024-06-23 11:59] LABS: BLOOD UREA NITROGEN 66.8 mg/dL (7-18)
[2024-06-23 12:01] LABS: SGOT/AST 9 U/L (15-37); SGPT/ALT 8 U/L (13-61)
[2024-06-23 12:02] LABS: BILIRUBIN,TOTAL 0.7 mg/dL (0.2-1); TOT PROT 7.4 g/dl (6.4-8.2)
[2024-06-23 12:04] LABS: ALK PHOS 127 U/L (45-117)
[2024-06-23 17:09] VITALS: RESP 20
[2024-06-23] MEDS: POLYETHYLENE GLYCOL (HEALTHYLAX) 3350 17 GM PACKET PO PRN (21:19)
[2024-06-23] MEDS: ALPRAZolam 0.25 MG TABLET PO PRN (23:39)
[2024-06-24] MEDS: diphenhydrAMINE HCL 25 MG CAPSULE (FP) PO ONE (03:28)
[2024-06-24] MEDS: ACETAMINOPHEN 1000 MG/100 ML BAG IVPB PRN (08:01)
[2024-06-24] MEDS: LACTULOSE 20 GM/30 ML UDC (FOR ORAL USE ONLY) PO ONE (09:42)
[2024-06-24] MEDS: BISACODYL 5 MG TABLET.DR (FP) PO ONE (09:42)
[2024-06-24 09:46] LABS: BASO % 0.6 % (0-2.0); EOS % 4.3 % (0-4.5); HEMATOCRIT 28.5 % (35.4-49); LYMPH % 30.7 % (8-40); MCH 30.6 pg (25.7-33.7); MCHC 31.8 g/dl (32.0-35.9); MEAN CELL VOLUME 96.3 fl (80-96); MEAN PLT VOLUME 9.7 fl (7.5-11.1); MONO % 19.7 % (3.8-10.2); NEUT % 44.7 % (42.8-82.8); PLATELET COUNT 155 10^3/uL (134-434); RBC 2.96 M/mm3 (4.00-5.60); RDW 16.5 % (11.9-15.9); WHITE BLOOD COUNT 6.3 K/mm3 (4.0-10.0)
[2024-06-24 09:58] LABS: CHLORIDE 99 mmol/L (98-107); POTASSIUM 3.7 mmol/L (3.5-5.1); SODIUM 136 mmol/L (136-145)
[2024-06-24 10:01] LABS: CALCIUM 9.1 mg/dL (8.5-10.1)
[2024-06-24 10:02] LABS: ALBUMIN 3.8 g/dl (3.4-5.0); ANION GAP 12 mmol/L (4-13); BLOOD UREA NITROGEN 52.6 mg/dL (7-18); CO2 26 mmol/L (21-32); GLUCOSE,RANDOM 83 mg/dL (74-106); MAGNESIUM 2.1 mg/dL (1.8-2.4)
[2024-06-24 10:05] LABS: SGOT/AST 12 U/L (15-37); SGPT/ALT 9 U/L (13-61)
[2024-06-24 10:06] LABS: BILIRUBIN,TOTAL 0.7 mg/dL (0.2-1)
[2024-06-24 10:07] LABS: TOT PROT 7.2 g/dl (6.4-8.2)
[2024-06-24 10:08] LABS: ALK PHOS 133 U/L (45-117)
[2024-06-24 10:09] LABS: CREATININE 8.8 mg/dL (0.55-1.3)
[2024-06-24 10:32] VITALS: BP 140/85; PULSE 95; TEMP 98.4
== END 2024-06-24 10:51 | disposition home or self-care (01) ==
LOC: JER 23:43 → UNDOADMOB 06-20 01:54 → JERBED 06-20 01:54 → INTOOBSV 06-20 01:54 → J8W 06-20 06:20 → JERBED 06-20 06:20 → J8W 06-20 15:12 → JERBED 06-20 15:12
PROVIDERS: ADMIT Internal Medicine; ATTEND Nurse Practitioner Acute Care
PROC: 3E03329 Introduction of Other Anti-infective into Peripheral Vein, Percutaneous Approach (ICD-10-PCS; 2024-06-20)
PROC: 3E033NZ Introduction of Analgesics, Hypnotics, Sedatives into Peripheral Vein, Percutaneous Approach (ICD-10-PCS; 2024-06-20)
PROC: 3E0333Z Introduction of Anti-inflammatory into Peripheral Vein, Percutaneous Approach (ICD-10-PCS; 2024-06-20)
PROC: 0J9H00Z Drainage of Left Lower Arm Subcutaneous Tissue and Fascia with Drainage Device, Open Approach (ICD-10-PCS; principal; 2024-06-20 01:38)
DX: L76.32 Postprocedural hematoma of skin and subcutaneous tissue following other procedure (principal); Y82.8 Other medical devices associated with adverse incidents; Y83.2 Surgical operation with anastomosis, bypass or graft as the cause of abnormal reaction of the patient, or of later complication, without mention of misadventure at the time of the procedure; Y92.9 Unspecified place or not applicable; L76.22 Postprocedural hemorrhage of skin and subcutaneous tissue following other procedure; J90 Pleural effusion, not elsewhere classified; D75.1 Secondary polycythemia; D64.9 Anemia, unspecified; I13.2 Hypertensive heart and chronic kidney disease with heart failure and with stage 5 chronic kidney disease, or end stage renal disease; N18.6 End stage renal disease; I50.9 Heart failure, unspecified; Z99.2 Dependence on renal dialysis; I25.10 Atherosclerotic heart disease of native coronary artery without angina pectoris; Z94.1 Heart transplant status; Z88.1 Allergy status to other antibiotic agents; R60.0 Localized edema; E87.70 Fluid overload, unspecified; M10.9 Gout, unspecified; G47.33 Obstructive sleep apnea (adult) (pediatric)
CPT/HCPCS: 0241U-QW; 10140; 36415; 36430; 71045-TC-FY; 80053; 83735; 84100; 85025; 85027; 85610; 85730; 86705; 86803; 86922; 87340; 94010; 94760; 96365; 96367; 96375; 99285-25; G0378; J0131; J1644; J2597; J7517; P9038; P9058; Q5106

== ENCOUNTER 2024-07-07 06:11 | Observation (INO) | payer OTHER ==
[2024-07-07 06:17] VITALS: BMI 29.2
[2024-07-07 08:17] LABS: VENOUS BASE EXCESS -10.1 mmol/L (-2-2); VENOUS O2 SATURATION 85.4 % (70-80); VENOUS PCO2 42.3 mmHg (38-52); VENOUS PH 7.223 (7.310-7.410)
[2024-07-07 08:29] LABS: BASO % 0.7 % (0-2.0); EOS % 4.8 % (0-4.5); HEMATOCRIT 33.6 % (35.4-49); HEMOGLOBIN 10.6 GM/dL (11.7-16.9); LYMPH % 26.8 % (8-40); MCH 31.4 pg (25.7-33.7); MCHC 31.6 g/dl (32.0-35.9); MEAN CELL VOLUME 99.4 fl (80-96); MEAN PLT VOLUME 9.6 fl (7.5-11.1); MONO % 18.7 % (3.8-10.2); PLATELET COUNT 129 10^3/uL (134-434); RBC 3.38 M/mm3 (4.00-5.60); RDW 18.9 % (11.9-15.9)
[2024-07-07 08:37] LABS: INR 1.11 (0.83-1.09); PROTHROMBIN TIME (PATIENT) 12.5 SEC (9.7-13.0)
[2024-07-07 08:40] LABS: ACTIVATED PTT 35.9 SECONDS (25.2-36.5)
[2024-07-07 08:53] LABS: CHLORIDE 107 mmol/L (98-107); SODIUM 139 mmol/L (136-145)
[2024-07-07] MEDS ORDERED: ALPRAZolam 0.25 MG TABLET ONE (08:53)
[2024-07-07] MEDS ORDERED: ACETAMINOPHEN INJECTION 100 ML ONE (08:53)
[2024-07-07 08:54] LABS: CALCIUM 8.4 mg/dL (8.5-10.1); POTASSIUM 6.1 mmol/L (3.5-5.1)
[2024-07-07 08:55] LABS: ALBUMIN 4.2 g/dl (3.4-5.0); ANION GAP 14 mmol/L (4-13); CO2 19 mmol/L (21-32); GLUCOSE,RANDOM 100 mg/dL (74-106); MAGNESIUM 2.6 mg/dL (1.8-2.4)
[2024-07-07 08:56] LABS: BLOOD UREA NITROGEN 117.1 mg/dL (7-18)
[2024-07-07 08:58] LABS: SGOT/AST 24 U/L (15-37); SGPT/ALT 26 U/L (13-61)
[2024-07-07 09:00] LABS: BILIRUBIN,TOTAL 0.8 mg/dL (0.2-1); TOT PROT 7.7 g/dl (6.4-8.2)
[2024-07-07 09:01] LABS: ALK PHOS 138 U/L (45-117)
[2024-07-07 09:13] LABS: N-TERMINAL BNP > 35000.0 pg/ml (5-125)
[2024-07-07] MEDS: ALPRAZolam 0.25 MG TABLET PO ONE (09:18)
[2024-07-07] MEDS: ACETAMINOPHEN 1000 MG/100 ML BAG IVPB ONE (09:18)
[2024-07-07] MEDS ORDERED: DEXTROSE 50%-WATER 25 GM/50 ML DISP.SYRIN ONE (09:43)
[2024-07-07] MEDS ORDERED: SODIUM BICARBONATE 8.4% 50 MEQ/50 ML VIAL ONE (09:46)
[2024-07-07] MEDS ORDERED: INSULIN ASPART SLIDING SCALE (NOVOLOG) 1 VIAL SQ ONE (09:46)
[2024-07-07] MEDS: SODIUM ZIRCONIUM CYCLOSILICATE (LOKELMA) 5 GM PACKET PO ONE (09:49)
[2024-07-07] MEDS ORDERED: SODIUM BICARBONATE 8.4% 50 MEQ/50 ML DISP.SYRIN ONE (09:50)
[2024-07-07] MEDS ORDERED: INSULIN REGULAR HUMAN 100 UNITS/ML *VIAL ONE (09:51)
[2024-07-07] MEDS: DEXTROSE 50%-WATER - 25 GM/50 ML VIAL IVPUSH ONE (09:56)
[2024-07-07] MEDS: SODIUM BICARBONATE 8.4% 50 MEQ/50 ML DISP.SYRIN IVPUSH ONE (09:56)
[2024-07-07] MEDS: CALCIUM GLUCONATE 10% - 1,000 MG/10 ML VIAL IVPB ONE (09:57)
[2024-07-07] MEDS: INSULIN REGULAR HUMAN 100 UNITS/ML *VIAL IVPUSH ONE (10:35)
[2024-07-07] MEDS ORDERED: SODIUM ZIRCONIUM CYCLOSILICATE (LOKELMA) 10 GM PACKET ONE (10:38)
[2024-07-07] MEDS ORDERED: SODIUM CHLORIDE 250 ML IV PRN (14:06)
[2024-07-07] MEDS: cloNIDine-TTS 0.3 MG /24 HRS PATCH.TDWK TD SCH (16:26)
[2024-07-07] MEDS: INSULIN (NOVOLOG) ASPART 100 UNITS/ML 10ML VIAL SQ ONE (16:31)
[2024-07-07] MEDS: SEVELAMER CARBONATE 800 MG TAB (FP) PO SCH (16:41)
[2024-07-07] MEDS: hydrALAZINE HCL 25 MG TABLET (FP) PO SCH (16:42)
[2024-07-07] MEDS: EPOETIN ALFA-EPBX 10,000 UNIT/ML VIAL SQ ONE (16:54)
[2024-07-07] MEDS: traZODone HCL 50 MG TABLET (FP) PO SCH (22:15)
[2024-07-07] MEDS: TACROLIMUS ANHYDROUS 1 MG CAPSULE PO SCH (22:16)
[2024-07-07] MEDS: ATORVASTATIN CA 20 MG TABLET (FP) PO SCH (22:17)
[2024-07-07] MEDS: CHOLESTYRAMINE/NUTRASWEET 4 GM PACKET PO SCH (22:17)
[2024-07-07] MEDS: LABETALOL HCL 200 MG TABLET (FP) PO SCH (22:17)
[2024-07-07] MEDS: MYCOPHENOLATE MOFETIL 500 MG TABLET PO SCH (22:17)
[2024-07-08] MEDS: MELATONIN 5 MG TABLETS PO ONE (04:53)
[2024-07-08 10:00] LABS: HEMATOCRIT 34.8 % (35.4-49); HEMOGLOBIN 10.8 GM/dL (11.7-16.9); MCH 30.9 pg (25.7-33.7); MCHC 30.9 g/dl (32.0-35.9); MEAN CELL VOLUME 99.7 fl (80-96); MEAN PLT VOLUME 9.8 fl (7.5-11.1); PLATELET COUNT 128 10^3/uL (134-434); RBC 3.49 M/mm3 (4.00-5.60); RDW 18.6 % (11.9-15.9); WHITE BLOOD COUNT 4.8 K/mm3 (4.0-10.0)
[2024-07-08 10:25] LABS: CHLORIDE 100 mmol/L (98-107); POTASSIUM 4.8 mmol/L (3.5-5.1); SODIUM 138 mmol/L (136-145)
[2024-07-08 10:44] LABS: CALCIUM 8.9 mg/dL (8.5-10.1)
[2024-07-08 10:45] LABS: ALBUMIN 4.2 g/dl (3.4-5.0); ANION GAP 12 mmol/L (4-13); CO2 25 mmol/L (21-32); GLUCOSE,RANDOM 119 mg/dL (74-106); MAGNESIUM 2.1 mg/dL (1.8-2.4)
[2024-07-08 10:46] LABS: BLOOD UREA NITROGEN 89.5 mg/dL (7-18)
[2024-07-08 10:48] LABS: PHOSPHOROUS 5.9 mg/dL (2.5-4.9); SGOT/AST 19 U/L (15-37); SGPT/ALT 22 U/L (13-61)
[2024-07-08] MEDS: CINACALCET HCL 30 MG TAB (FP) PO SCH (10:48)
[2024-07-08 10:49] LABS: BILIRUBIN,TOTAL 1.2 mg/dL (0.2-1); CREATININE 10.2 mg/dL (0.55-1.3)
[2024-07-08] MEDS: amLODIPine BESYLATE 10 MG TABLET (FP) PO SCH (10:49)
[2024-07-08] MEDS: predniSONE 5 MG TABLET (UD) PO SCH (10:49)
[2024-07-08 10:50] LABS: TOT PROT 7.8 g/dl (6.4-8.2)
[2024-07-08] MEDS: hydrOXYzine HCL 10 MG/5 ML UNIT DOSE CUPS PO SCH (10:50)
[2024-07-08] MEDS: TACROLIMUS ANHYDROUS 1 MG CAPSULE PO SCH (10:50)
[2024-07-08 10:51] LABS: ALK PHOS 138 U/L (45-117)
[2024-07-08 11:03] LABS: ANISOCYTOSIS 0; HELMET CELLS 0; HOWELL-JOLLY BODIES 0; MACROCYTOSIS 0; OVALOCYTE 0; ROULEAU 0; SICKELED CELLS 0; TARGET CELLS 0; TEAR DROP CELLS 0; TOXIC GRANULATION 0
[2024-07-08] MEDS ORDERED: SODIUM CHLORIDE 250 ML IV PRN (16:12)
[2024-07-08] MEDS: EPOETIN ALFA-EPBX 10,000 UNIT/ML VIAL SQ ONE (18:06)
[2024-07-08 18:55] VITALS: RESP 18
[2024-07-08] MEDS: ACETAMINOPHEN 500 MG TABLET (FP) PO PRN (19:09)
[2024-07-09 11:30] LABS: HEMOGLOBIN 10.6 GM/dL (11.7-16.9); MCH 31.4 pg (25.7-33.7); MCHC 31.3 g/dl (32.0-35.9); MEAN CELL VOLUME 100.4 fl (80-96); MEAN PLT VOLUME 9.8 fl (7.5-11.1); PLATELET COUNT 117 10^3/uL (134-434); RBC 3.39 M/mm3 (4.00-5.60); RDW 17.8 % (11.9-15.9)
[2024-07-09 11:57] LABS: CHLORIDE 103 mmol/L (98-107); POTASSIUM 4.4 mmol/L (3.5-5.1); SODIUM 138 mmol/L (136-145)
[2024-07-09 12:02] LABS: CALCIUM 8.3 mg/dL (8.5-10.1)
[2024-07-09 12:03] LABS: ALBUMIN 3.9 g/dl (3.4-5.0); ANION GAP 10 mmol/L (4-13); CO2 25 mmol/L (21-32); GLUCOSE,RANDOM 125 mg/dL (74-106); MAGNESIUM 1.9 mg/dL (1.8-2.4)
[2024-07-09 12:04] LABS: SGOT/AST 18 U/L (15-37); SGPT/ALT 21 U/L (13-61)
[2024-07-09 12:06] LABS: BILIRUBIN,TOTAL 0.9 mg/dL (0.2-1); BLOOD UREA NITROGEN 52.2 mg/dL (7-18); CREATININE 7.6 mg/dL (0.55-1.3); PHOSPHOROUS 5.1 mg/dL (2.5-4.9); TOT PROT 7.4 g/dl (6.4-8.2)
[2024-07-09 12:07] LABS: ALK PHOS 121 U/L (45-117)
[2024-07-09 12:26] LABS: ANISOCYTOSIS 1+; MACROCYTOSIS 1+
[2024-07-09] MEDS ORDERED: TRIMETHOBENZAMIDE HCL 200MG/2ML INJ IM ONE (21:53)
[2024-07-09] MEDS: TRIMETHOBENZAMIDE HCL 200MG/2ML INJ IM ONE (23:50)
[2024-07-09] MEDS: TACROLIMUS ANHYDROUS 1 MG CAPSULE PO SCH (23:51)
[2024-07-10 09:13] LABS: BASO % 0.8 % (0-2.0); EOS % 4.7 % (0-4.5); HEMATOCRIT 33.7 % (35.4-49); HEMOGLOBIN 10.5 GM/dL (11.7-16.9); LYMPH % 34.2 % (8-40); MCH 31.1 pg (25.7-33.7); MCHC 31.2 g/dl (32.0-35.9); MEAN CELL VOLUME 99.6 fl (80-96); MEAN PLT VOLUME 9.9 fl (7.5-11.1); MONO % 19.6 % (3.8-10.2); NEUT % 40.7 % (42.8-82.8); PLATELET COUNT 117 10^3/uL (134-434); RBC 3.38 M/mm3 (4.00-5.60); RDW 17.8 % (11.9-15.9); WHITE BLOOD COUNT 4.1 K/mm3 (4.0-10.0)
[2024-07-10 09:20] LABS: CHLORIDE 103 mmol/L (98-107); POTASSIUM 4.5 mmol/L (3.5-5.1); SODIUM 137 mmol/L (136-145)
[2024-07-10 09:31] LABS: ALBUMIN 3.9 g/dl (3.4-5.0); ANION GAP 11 mmol/L (4-13); BLOOD UREA NITROGEN 63.9 mg/dL (7-18); CO2 23 mmol/L (21-32); MAGNESIUM 2.1 mg/dL (1.8-2.4)
[2024-07-10 09:32] LABS: GLUCOSE,RANDOM 114 mg/dL (74-106)
[2024-07-10 09:34] LABS: SGPT/ALT 17 U/L (13-61)
[2024-07-10 09:35] LABS: SGOT/AST 13 U/L (15-37)
[2024-07-10 09:36] LABS: BILIRUBIN,TOTAL 0.9 mg/dL (0.2-1); TOT PROT 7.2 g/dl (6.4-8.2)
[2024-07-10 09:37] LABS: ALK PHOS 115 U/L (45-117)
[2024-07-10] MEDS: ALPRAZolam 0.25 MG TABLET PO PRN (09:53)
[2024-07-10] MEDS ORDERED: SODIUM CHLORIDE 250 ML IV PRN (09:57)
[2024-07-10] MEDS: HEPARIN NA (PORCINE) 5,000 UNITS/ML 1ML VIAL IVPUSH ONE (10:00)
[2024-07-10] MEDS: EPOETIN ALFA-EPBX 10,000 UNIT/ML VIAL IVPUSH ONE (11:27)
[2024-07-10 12:42] LABS: CREATININE 9.1 mg/dL (0.55-1.3)
[2024-07-10 15:23] VITALS: BP 139/69; PULSE 87; TEMP 98.2
== END 2024-07-10 16:11 | disposition home or self-care (01) ==
LOC: JER 06:11 → JERBED 09:29 → INTOOBSV 09:29 → UNDOADMOB 09:29 → JERBED 11:41 → J5S 11:41 → JERBED 15:54
PROVIDERS: ADMIT Internal Medicine; ATTEND Internal Medicine
PROC: 3E033VG Introduction of Insulin into Peripheral Vein, Percutaneous Approach (ICD-10-PCS; principal; 2024-07-07)
PROC: 3E033GC Introduction of Other Therapeutic Substance into Peripheral Vein, Percutaneous Approach (ICD-10-PCS; 2024-07-07)
PROC: 3E023GC Introduction of Other Therapeutic Substance into Muscle, Percutaneous Approach (ICD-10-PCS; 2024-07-07)
PROC: 3E013GC Introduction of Other Therapeutic Substance into Subcutaneous Tissue, Percutaneous Approach (ICD-10-PCS; 2024-07-07)
DX: J96.01 Acute respiratory failure with hypoxia (principal); E87.5 Hyperkalemia; I13.2 Hypertensive heart and chronic kidney disease with heart failure and with stage 5 chronic kidney disease, or end stage renal disease; N18.6 End stage renal disease; Z99.2 Dependence on renal dialysis; Z91.158 Patient's noncompliance with renal dialysis for other reason; I25.10 Atherosclerotic heart disease of native coronary artery without angina pectoris; F41.9 Anxiety disorder, unspecified; F32.A Depression, unspecified; D50.8 Other iron deficiency anemias; E83.41 Hypermagnesemia; E83.52 Hypercalcemia; M10.9 Gout, unspecified; Z94.1 Heart transplant status; Z88.1 Allergy status to other antibiotic agents; Z88.8 Allergy status to other drugs, medicaments and biological substances
CPT/HCPCS: 0241U-QW; 36415; 71045-TC-FY; 80053; 82803; 82962; 83735; 83880; 84100; 85025; 85610; 85730; 86850; 86900; 86901; 93005; 93010; 93880-TC; 94761; 96372; 96374; 96375; 97116-GP; 97161-GP; 99285-25; G0378; J0131; J1644; J7517; Q5106

== ENCOUNTER 2024-09-16 01:13 | Inpatient (IN) | payer OTHER ==
[2024-09-16 01:24] VITALS: BMI 24.0
[2024-09-16 02:26] LABS: BASO % 1.3 % (0-2.0); EOS % 4.1 % (0-4.5); HEMATOCRIT 35.5 % (35.4-49); HEMOGLOBIN 11.2 GM/dL (11.7-16.9); LYMPH % 30.7 % (8-40); MCH 32.5 pg (25.7-33.7); MCHC 31.4 g/dl (32.0-35.9); MEAN CELL VOLUME 103.6 fl (80-96); MEAN PLT VOLUME 8.7 fl (7.5-11.1); NEUT % 44.9 % (42.8-82.8); PLATELET COUNT 100 10^3/uL (134-434); RBC 3.43 M/mm3 (4.00-5.60); RDW 17.3 % (11.9-15.9); WHITE BLOOD COUNT 4.5 K/mm3 (4.0-10.0)
[2024-09-16 02:34] LABS: INR 1.25 (0.83-1.09); PROTHROMBIN TIME (PATIENT) 13.6 SEC (9.7-13.0)
[2024-09-16 02:37] LABS: ACTIVATED PTT 34.6 SECONDS (25.2-36.5)
[2024-09-16 02:45] LABS: CHLORIDE 106 mmol/L (98-107); SODIUM 139 mmol/L (136-145)
[2024-09-16 02:47] LABS: ALBUMIN 3.9 g/dl (3.4-5.0); BLOOD UREA NITROGEN 95.7 mg/dL (7-18); CALCIUM 7.1 mg/dL (8.5-10.1); CO2 20 mmol/L (21-32); GLUCOSE,RANDOM 98 mg/dL (74-106); MAGNESIUM 2.1 mg/dL (1.8-2.4)
[2024-09-16 02:47] LABS: VENOUS BASE EXCESS -8.9 mmol/L (-2-2); VENOUS O2 SATURATION 60.7 % (70-80); VENOUS PCO2 40.9 mmHg (38-52); VENOUS PH 7.254 (7.310-7.410)
[2024-09-16 02:50] LABS: SGOT/AST 23 U/L (15-37); SGPT/ALT 22 U/L (13-61)
[2024-09-16 02:52] LABS: BILIRUBIN,TOTAL 0.6 mg/dL (0.2-1); TOT PROT 7.7 g/dl (6.4-8.2)
[2024-09-16 02:53] LABS: ALK PHOS 166 U/L (45-117)
[2024-09-16] MEDS ORDERED: PIPERACILLIN/TAZOB 2.25 GM 2.25 GM/50 ML BAG IVPB ONE (03:32)
[2024-09-16] MEDS ORDERED: CALCIUM GLUC IN NACL, ISO-OSM 1 GM/50 ML BAG IVPB ONE (03:32)
[2024-09-16] MEDS: CALCIUM GLUC IN NACL, ISO-OSM 1 GM/50 ML BAG IVPB ONE (03:48)
[2024-09-16] MEDS: PIPERACILLIN/TAZOB 4.5 GM 2.25 GM in DEXTROSE 5%-WATER 100 ML IVPB ONE (03:48)
[2024-09-16 03:51] LABS: ANION GAP 13 mmol/L (4-13); CREATININE 10.9 mg/dL (0.55-1.3); N-TERMINAL BNP 347912.7 pg/ml (5-125); POTASSIUM 6.2 mmol/L (3.5-5.1)
[2024-09-16] MEDS ORDERED: DEXTROSE 50%-WATER 25 GM/50 ML DISP.SYRIN ONE (04:16)
[2024-09-16] MEDS ORDERED: INSULIN REGULAR HUMAN 100 UNITS/ML *VIAL ONE (04:18)
[2024-09-16] MEDS: INSULIN REGULAR HUMAN 100 UNITS/ML *VIAL IVPUSH ONE (04:32)
[2024-09-16] MEDS: DEXTROSE 50%-WATER 25 GM/50 ML DISP.SYRIN IVPUSH ONE (04:32)
[2024-09-16] MEDS ORDERED: SODIUM ZIRCONIUM CYCLOSILICATE (LOKELMA) 10 GM PACKET ONE (05:52)
[2024-09-16] MEDS: HEPARIN NA (PORCINE) 5,000 UNITS/ML 1ML VIAL SQ SCH (06:23)
[2024-09-16] MEDS: BUMETANIDE INJECTION 1 MG/4 ML VIAL IVPUSH ONE (06:23)
[2024-09-16] MEDS: SODIUM ZIRCONIUM CYCLOSILICATE (LOKELMA) 5 GM PACKET PO ONE (06:23)
[2024-09-16] MEDS ORDERED: SODIUM CHLORIDE 250 ML IV PRN (07:33)
[2024-09-16 09:28] VITALS: RESP 18
[2024-09-16] MEDS: SEVELAMER CARBONATE 800 MG TAB (FP) PO SCH (09:54)
[2024-09-16] MEDS ORDERED: TACROLIMUS ANHYDROUS 1 MG CAPSULE PO SCH ×2 (10:00→22:00)
[2024-09-16] MEDS ORDERED: SODIUM ZIRCONIUM CYCLOSILICATE (LOKELMA) 5 GM PACKET PO SCH (10:00)
[2024-09-16] MEDS: predniSONE 5 MG TABLET (UD) PO SCH (10:55)
[2024-09-16] MEDS: MYCOPHENOLATE MOFETIL 500 MG TABLET PO SCH (10:55)
[2024-09-16] MEDS: SODIUM ZIRCONIUM CYCLOSILICATE (LOKELMA) 5 GM PACKET PO SCH (10:55)
[2024-09-16] MEDS: TACROLIMUS ANHYDROUS 1 MG CAPSULE PO SCH (10:55)
[2024-09-16 11:10] LABS: BASO % 0.7 % (0-2.0); EOS % 2.2 % (0-4.5); HEMATOCRIT 33.6 % (35.4-49); HEMOGLOBIN 10.4 GM/dL (11.7-16.9); LYMPH % 23.4 % (8-40); MCH 32.2 pg (25.7-33.7); MEAN CELL VOLUME 103.7 fl (80-96); MEAN PLT VOLUME 10.5 fl (7.5-11.1); MONO % 18.5 % (3.8-10.2); NEUT % 55.2 % (42.8-82.8); PLATELET COUNT 108 10^3/uL (134-434); RBC 3.24 M/mm3 (4.00-5.60); WHITE BLOOD COUNT 5.3 K/mm3 (4.0-10.0)
[2024-09-16 12:44] LABS: HCV DIAGNOSTIC IN-HOUSE W/RFLX NON-REACTIVE (NONREACTIVE)
[2024-09-16 12:55] LABS: ALBUMIN 3.8 g/dl (3.4-5.0); ANION GAP 17 mmol/L (4-13); BILIRUBIN,TOTAL 0.6 mg/dL (0.2-1); BLOOD UREA NITROGEN 103.6 mg/dL (7-18); CALCIUM 7.3 mg/dL (8.5-10.1); CHLORIDE 107 mmol/L (98-107); CO2 16 mmol/L (21-32); CREATININE 11.1 mg/dL (0.55-1.3); GLUCOSE,RANDOM 82 mg/dL (74-106); MAGNESIUM 2.2 mg/dL (1.8-2.4); PHOSPHOROUS 5.9 mg/dL (2.5-4.9); POTASSIUM 5.9 mmol/L (3.5-5.1); SGOT/AST 25 U/L (15-37); SGPT/ALT 27 U/L (13-61); SODIUM 139 mmol/L (136-145); TOT PROT 7.3 g/dl (6.4-8.2)
[2024-09-16 12:58] LABS: ALK PHOS 148 U/L (45-117)
[2024-09-16 13:45] VITALS: BP 134/74; PULSE 92; TEMP 98.5
[2024-09-16] MEDS: CINACALCET HCL 30 MG TAB (FP) PO SCH (16:17)
== END 2024-09-16 16:04 | disposition left against medical advice (07) | DRG 291 ==
LOC: JER 01:13 → JERBED 03:14
PROVIDERS: ADMIT Internal Medicine
PROC: 5A1D70Z Performance of Urinary Filtration, Intermittent, Less than 6 Hours Per Day (ICD-10-PCS; principal; 2024-09-16)
DX: I13.2 Hypertensive heart and chronic kidney disease with heart failure and with stage 5 chronic kidney disease, or end stage renal disease (principal); I50.43 Acute on chronic combined systolic (congestive) and diastolic (congestive) heart failure; N18.6 End stage renal disease; E27.1 Primary adrenocortical insufficiency; Z94.1 Heart transplant status; E87.20 Acidosis, unspecified; Z99.2 Dependence on renal dialysis; D69.6 Thrombocytopenia, unspecified; D53.9 Nutritional anemia, unspecified; I25.10 Atherosclerotic heart disease of native coronary artery without angina pectoris; E87.70 Fluid overload, unspecified; F41.9 Anxiety disorder, unspecified; I45.10 Unspecified right bundle-branch block; I44.0 Atrioventricular block, first degree; M79.7 Fibromyalgia; E87.5 Hyperkalemia
CPT/HCPCS: 0241U-QW; 36415; 71045-TC-FY; 80053; 82803; 83735; 83880; 84100; 84484; 85025; 85610; 85730; 86803; 86850; 86900; 86901; 87340; 93005; 93010; 99285-25